=== PATIENT | female | born 2000 | race Caucasian/White ===

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

== ENCOUNTER 2021-03-05 17:07 | Emergency (ER) | payer OTHER ==
[2021-03-05 18:02] VITALS: BP 131/94; PULSE 78; RESP 18; TEMP 98.4
[2021-03-05] MEDS ORDERED: ACETAMINOPHEN TAB 325 MG TAB PO STA (19:54)
--- NOTE | 2021-03-05 20:34 | USB ---
EXAMINATION TYPE: US breast limited LT DATE OF EXAM: 03/05/2021 COMPARISON: NONE CLINICAL HISTORY: mass. Left palpable area 2:00 B At 2:00 A, there is a cystic area visualized measuring 7 x 3 x 8 mm. At the patient's palpable, 2:00 B, there is a hypoechoic solid appearing aread visualized with vascularity measuring 6 x 8 x 11 mm, p ossible fibroadenoma vs other IMPRESSION: In the 2:00 position there is partly septated cyst measuring 7 x 3 mm. There is 8 x 6 x 1 1 mm solid hypoechoic nodule in the 2:00 position zone see that was the area of concern. This is slig htly lobulated. Follow-up is recommended to show long-term stability of the hypoechoic nodule. Repeat ultrasound [place] mm[place] in 6 months. BI-RADS Category 3 probably benign.
--- NOTE | 2021-03-05 20:58 | ED ---
General Adult HPI - General Chief complaint: Skin/Abscess/Foreign Body Stated complaint: Lump on Lt Breast Source: patient Mode of arrival: ambulatory - History of Present Illness Initial comments: Patient is a 20-year-old female with no past medical history presents emergency room with reported left breast pain. She reports that she felt a mass in her left breast last night. Reports it is tender to the touch. Denies fevers, chills or overlying redness. No family history of breast cancer. Denies any nipple drainage. No concern for . Reports that her menstrual cycle will be starting next week. She has not taken anything for pain control. She denies any additional symptoms to include nausea, vomiting, chest pain, shortness of breath, abdominal pain. No alleviating, precipitating or modifying factors - Related Data Home Medications Medication Instructions Recorded Confirmed Cephalexin 250 mg PO TID 09/14/15 09/14/15 Ondansetron Odt [Zofran ODT] 4 mg PO Q8HR 09/14/15 09/14/15 Previous Rx's Medication Instructions Recorded Dicyclomine [Bentyl] 10 mg PO QID PRN #20 capsule 09/14/15 Allergies Allergy/AdvReac Type Severity Reaction Status Date / Time Penicillins Allergy Rapid Verified 03/05/21 18:02 Heart Rate Review of Systems ROS Statement: Those systems with pertinent positive or pertinent negative responses have been documented in the HPI. ROS Other: All systems not noted in ROS Statement are negative. Past Medical History Past Medical History: No Reported History History of Any Multi-Drug Resistant Organisms: None Reported Past Surgical History: Adenoidectomy, Ear Surgery, Tonsillectomy Past Psychological History: No Psychological Hx Reported Smoking Status: Never smoker Past Alcohol Use History: None Reported Past Drug Use History: None Reported Course Vital Signs 03/05/21 17:58 Temperature 98.4 F Pulse Rate 78 Respiratory 18 Rate Blood Pressure 131/94 O2 Sat by Pulse 100 Oximetry Medical Decision Making - Medical Decision Making The patient is placed into room 33. A thorough history and physical exam was performed. Patient is given Tylenol for pain control. Ultrasound of the left breast is performed which demonstrates a cystic area measuring 7 x 3 x 8 mm and additional hypoechoic solid-appearing area measuring 6 x 8 x 11 which is concerning for fibroadenoma. Birads Category 3. Results are discussed with the patient. Instructed to follow-up with her primary care physician. Alternatively taking Motrin, for pain control. Have repeat ultrasound done in 3-6 months. Return to the emergency room for any new or worsening symptoms per patient was discharged home in stable condition Disposition Clinical Impression: Breast mass Disposition: HOME SELF-CARE Condition: Stable Instructions (If sedation given, give patient instructions): Breast Mass (ED) Additional Instructions: Please follow up with your PCP in 2-4 days. You should have a repeat ultrasound in 3-4 months. Return to the ED for any new or worsening symptoms. Is patient prescribed a controlled substance at d/c from ED?: No Referrals: Farhat Swift MD [Primary Care Provider] - 1-2 days Time of Disposition: 20:58
== END 2021-03-05 21:34 | disposition home or self-care (01) ==
LOC: EC 17:07
DX: N63.20 Unspecified lump in the left breast, unspecified quadrant (principal); Z88.0 Allergy status to penicillin; Z90.89 Acquired absence of other organs
CPT/HCPCS: 99283

== ENCOUNTER → 2021-08-31 | Outpatient (CLI) | payer OTHER ==
--- NOTE | 2021-08-31 18:00 | XR ---
EXAMINATION TYPE: XR thoracic spine 2V, XR lumbar spine 2 or 3V DATE OF EXAM: 08/31/2021 COMPARISON: NONE HISTORY: 20 years Female. STUDY INDICATION GIVEN: Pain in Mid/Lower Back M54.50 . TECHNIQUE: Frontal lateral radiographs of the thoracic spine. Frontal and lateral radiographs of the lumbar spine, 3 views. IMPRESSION: No acute fracture or dislocation. Vertebral body heights are normal. Posterior elements are acutely i ntact. Nonrib-bearing lumbar-type vertebral bodies. Included ribs are acutely intact. The heart is not enlar ged. The mediastinum is normal in contour. The included lungs are clear. Straightening of the lumbar curvature noted to be mild. Facet joint arthropathy seen at L3-4 L4-5 and L5-S1. Stable mild neural foraminal narrowing at L5-S1. Please note that radiographs are limited renetta luation for degenerative changes, if clinical concern persists, obtain MRI of the lumbar spine as cli nically indicated.
== END | disposition home or self-care (01) ==
LOC: RADXRMAIN 16:55
PROVIDERS: ATTEND Internal Medicine
DX: M47.817 Spondylosis without myelopathy or radiculopathy, lumbosacral region (principal); M43.8X6 Other specified deforming dorsopathies, lumbar region
CPT/HCPCS: 72070; 72100

== ENCOUNTER → 2021-09-24 | Outpatient (CLI) | payer OTHER ==
--- NOTE | 2021-09-26 12:33 | USB ---
Reason for exam: follow-up at short interval from prior study. Physical Findings: A clinical breast exam by your physician is recommended on an annual basis and results should be correlated with mammographic findings. US Breast BILAT Right complete breast ultrasound includes all four quadrants, the retroareolar region and axilla. Finding demonstrates a 2.0 x 2.0 x 0.6cm oval, solid, hypoechoic, circumscribed lesion at 11 o'clock, probable fibroadenoma. 6 month follow up recommended. Left complete breast ultrasound includes all four quadrants, the retroareolar region and axilla. Finding demonstrates a 0.6 x 0.5 x 0.3cm oval, cystic lesion at 2 o'clock, a 1.1 x 1.4 x 1.3cm heterogeneous tissue, small cystic components at 2 o'clock versus 1.1 x 0.8 x 0.6cm previously, 6 month follow up recommended and a 0.5 x 0.5 x 0.2cm oval, cystic lesion at 1 o'clock. Likely painful fibrocystic change, painful palpable. ASSESSMENT: Probably benign, BI-RAD 3 RECOMMENDATION: Ultrasound of both breasts in 6 months. (right breast 11 o'clock, left breast 2 o'clock) Manage on a clinical basis with regard to palpable painful area 2 o'clock left breast, suspect painful fibrocystic change.
== END | disposition home or self-care (01) ==
LOC: RADUSWWP 14:53
PROVIDERS: ATTEND Internal Medicine
DX: N63.0 Unspecified lump in unspecified breast (principal); Z88.0 Allergy status to penicillin

== ENCOUNTER 2021-10-23 13:34 | Emergency (ER) | payer OTHER ==
[2021-10-23 13:53] VITALS: BP 160/88; PULSE 102; RESP 18; TEMP 98.6
--- NOTE | 2021-10-23 15:16 | US ---
EXAMINATION TYPE: US abdomen APPY DATE OF EXAM: 10/23/2021 COMPARISON: NONE CLINICAL HISTORY: RLQ pain. RLQ pain APPENDIX AP Diameter Not visualized. Is the appendix seen in its entirety from the proximal cecum to distal end: no The appendix is not clearly identified and clinical management of any suspected appendicitis will be required. IMPRESSION: 1. No suspicious changes to suggest acute appendicitis. 2. Clinical management of any suspected appendicitis will be required.
--- NOTE | 2021-10-23 15:21 | ED ---
Abdominal Pain HPI - General Chief Complaint: Abdominal Pain Stated Complaint: abd pain Time Seen by Provider: 10/23/21 13:56 Source: patient, family, RN notes reviewed Mode of arrival: ambulatory - History of Present Illness Initial Comments: This is a 21-year-old female who presents to the emergency department for right lower quadrant pain. States that after a bowel movement, she developed sharp right lower quadrant pain. Also states she has sharp shooting pains in her rectum. She has had similar pains in the past, and states that this is not the worse it has ever been. She has not done anything for the pain at this time. Denies any fevers, chills, nausea, vomiting. She does note that most of her life she has had a problem with chronic constipation and she is not doing anything to treat it. Patient is somewhat difficult to get a history from, she seems to have some sort of cognitive impairment. MD Complaint: abdominal pain Location: RLQ Quality: stabbing, sharp Consistency: intermittent Associated Symptoms: denies other symptoms - Related Data Home Medications Medication Instructions Recorded Confirmed No Known Home Medications 10/23/21 10/23/21 Allergies Allergy/AdvReac Type Severity Reaction Status Date / Time Penicillins Allergy Rapid Verified 10/23/21 15:47 Heart Rate Review of Systems ROS Statement: Those systems with pertinent positive or pertinent negative responses have been documented in the HPI. ROS Other: All systems not noted in ROS Statement are negative. Constitutional: Denies: fever, chills ENT: Denies: ear pain, throat pain Respiratory: Denies: cough, dyspnea Cardiovascular: Denies: chest pain, palpitations Gastrointestinal: Reports: abdominal pain. Denies: nausea, vomiting, diarrhea Genitourinary: Denies: urgency, dysuria Musculoskeletal: Denies: back pain Skin: Denies: rash Neurological: Denies: headache Past Medical History Past Medical History: No Reported History History of Any Multi-Drug Resistant Organisms: None Reported Past Surgical History: Adenoidectomy, Ear Surgery, Tonsillectomy Past Psychological History: No Psychological Hx Reported Smoking Status: Never smoker Past Alcohol Use History: None Reported Past Drug Use History: None Reported General Exam General appearance: alert, in no apparent distress Head exam: Present: atraumatic, normocephalic, normal inspection Respiratory exam: Present: normal lung sounds bilaterally. Absent: respiratory distress, wheezes, rales, rhonchi, stridor Cardiovascular Exam: Present: regular rate, normal rhythm, normal heart sounds. Absent: systolic murmur, diastolic murmur, rubs, gallop, clicks GI/Abdominal exam: Present: soft, tenderness (RLQ), guarding (minimal), normal bowel sounds. Absent: distended, rebound, rigid Expanded GI/Abdominal exam: Present: tenderness at [place]'s Point. Absent: psoas sign, obturator sign, Gómez's sign, Rovsing's sign Neurological exam: Present: alert, oriented X3, CN II-XII intact Psychiatric exam: Present: normal affect, normal mood Skin exam: Present: warm, dry, intact, normal color. Absent: rash Course Vital Signs 10/23/21 13:46 Temperature 98.6 F Pulse Rate 102 H Respiratory 18 Rate Blood Pressure 160/88 O2 Sat by Pulse 100 Oximetry Medical Decision Making - Medical Decision Making This is a 21-year-old female who presents to the emergency department for right lower quadrant pain. Patient was exquisitely tender on physical exam. I advised that we start with an ultrasound, to limit radiation exposure, which can put her ovaries at risk and cause problems with fertility in the future. We discussed the possibility of doing lab work, however the patient declined and states that she really does not like needles. Ultrasound of the right lower quadrant could not fully visualize the appendix and ultrasound of the pelvis was unremarkable. Patient went to provide a urine sample, and states that after she urinated, but the pain went away. Given that this is a recurrent issue for the patient, I do not think she has an acute process going on that requires further workup. She is agreeable to avoiding any blood work or further imaging at this time, given that her symptoms resolved. It is likely that a large component of this is due to constipation. I instructed her to eat plenty of fiber and drink plenty of water and try [id number] probiotics and MiraLAX. She is also advised to discuss this issue with her primary care provider in the event further workup is needed. Return precautions reviewed in depth, the patient is instructed to return to the emergency department with any new, worsening, or concerning symptoms. Patient verbalized understanding. This case was discussed in detail with the attending ED physician. Presentation, findings, and treatment plan discussed in detail as well. - Lab Data Lab Results 10/23/21 10/23/21 Range/Units 15:41 15:41 Urine Color Light Yellow Urine Appearance Clear (Clear) Urine pH 6.0 (5.0-8.0) Ur Specific [place] 1.008 (1.001-1.035) Urine Protein Negative (Negative) Urine Glucose (UA) Negative (Negative) Urine Ketones Negative (Negative) Urine Blood Negative (Negative) Urine Nitrite Negative (Negative) Urine Bilirubin Negative (Negative) Urine Urobilinogen <2.0 (<2.0) mg/dL Ur Leukocyte Esterase Negative (Negative) Urine HCG, Qual Not Detected (Not Detectd) - Radiology Data Radiology results: report reviewed, image reviewed Disposition Clinical Impression: RLQ abdominal pain, Constipation Disposition: HOME SELF-CARE Instructions (If sedation given, give patient instructions): Abdominal Pain (ED) Additional Instructions: Return to the emergency department with any new, worsening, or concerning symptoms. Eat more fiber and drink more water. Try over the counter MiraLAX and probiotics for symptomatic management. Follow-up with your primary care provider in 1 to 2 days. Is patient prescribed a controlled substance at d/c from ED?: No Referrals: Farhat Swift MD [Primary Care Provider] - 1-2 days
--- NOTE | 2021-10-23 15:50 | US ---
EXAMINATION TYPE: US pelvic complete DATE OF EXAM: 10/23/2021 COMPARISON: NONE CLINICAL HISTORY: RLQ pain. TECHNIQUE: Transabdominal (TA). Transabdominal sonographic images of the pelvis were acquired. Tra nsvaginal not attempted, patient has never been sexually active Date of LMP: 10-10-21 EXAM MEASUREMENTS: Uterus: 6.4 x 2.8 x 4.1 cm Endometrial Stripe: 0.6 cm Right Ovary: 3.1 x 2.2 s 2.4 cm Left Ovary: obscured by overlying bowel gas 1. Uterus: Anteverted wnl 2. Endometrium: wnl 3. Right Ovary: wnl 4. Left Ovary: obscured by overlying bowel gas Spectral, color and waveform doppler imaging shows good arterial and venous flow within the right o vary; there is no evidence for ovarian torsion on right 5. Bilateral Adnexa: wnl 6. Posterior cul-de-sac: wnl IMPRESSION: 1. Nonvisualization of the left ovary. Otherwise, no definite acute process.
[2021-10-23 16:02] LABS: Appearance,Urine Clear (Clear); Bilirubin,Urine Negative (Negative); Blood,Urine Negative (Negative); Color,Urine Light Yellow; Glucose,Urine (UA) Negative (Negative); Ketones,Urine Negative (Negative); Leukocyte Esterase,Urine Negative (Negative); Nitrite,Urine Negative (Negative); Protein,Urine Negative (Negative); Specific Gravity,Urine 1.008 (1.001-1.035); Urobilinogen,Urine <2.0 mg/dL (<2.0)
== END 2021-10-23 16:16 | disposition home or self-care (01) ==
LOC: EC 13:34
DX: K59.00 Constipation, unspecified (principal); R10.31 Right lower quadrant pain; Z88.0 Allergy status to penicillin
CPT/HCPCS: 76705; 76856; 81003; 81025; 93976; 99285

== ENCOUNTER 2021-12-25 13:26 | Emergency (ER) | payer OTHER ==
[2021-12-25 13:44] VITALS: BP 121/78; PULSE 98; RESP 18; TEMP 98.8
--- NOTE | 2021-12-25 15:18 | USB ---
Technique: Method: Targeted. Findings: Right complete breast ultrasound includes all four quadrants, the retroareolar region and axilla. Finding demonstrates a 2.0 x 2.0 x 0.6cm oval, solid, hypoechoic, circumscribed lesion at 11 o'clock, probable fibroadenoma. Left complete breast ultrasound includes all four quadrants, the retroareolar region and axilla. No solid or cystic mass is identified. Overall Assessment: Suspicious, BI-RAD 4 Management: Ultrasound Core Biopsy of the right breast. A clinical breast exam by your physician is recommended on an annual basis and results should be correlated with mammographic findings. Electronically signed and approved by: Shaheed Wood M.D. Radiologis
[2021-12-25 15:28] LABS: HCT 39.5 % (34.0-46.0); HGB 13.5 gm/dL (11.4-16.0); MCH 29.4 pg (25.0-35.0); MCHC 34.1 g/dL (31.0-37.0); MCV 86.3 fL (80.0-100.0); Mean Platelet Volume 7.8; Platelet Count 246 k/uL (150-450); RBC 4.57 m/uL (3.80-5.40); WBC 5.8 k/uL (4.0-11.0)
--- NOTE | 2021-12-25 17:00 | ED ---
General Adult HPI - General Chief complaint: Skin/Abscess/Foreign Body Stated complaint: lump on breast Time Seen by Provider: 12/25/21 13:48 Source: patient Mode of arrival: ambulatory Limitations: no limitations - History of Present Illness Initial comments: Patient is 21-year-old female who presents with her father with complaints of increased breast pain most significantly to her left outer breast but it also in addition to her right upper outer breast. She reports that she is breast cyst that had been ultrasounded in the past but her pain has been increasing recently and she is concerned that the cyst may be getting larger. She she denies any wounds, redness, swelling or fevers. Her last menstrual cycle was approximately 3 weeks ago. She has no other significant past medical history. - Related Data Home Medications Medication Instructions Recorded Confirmed No Known Home Medications 10/23/21 10/23/21 Allergies Allergy/AdvReac Type Severity Reaction Status Date / Time Penicillins Allergy Rapid Verified 12/25/21 13:44 Heart Rate Review of Systems ROS Statement: Those systems with pertinent positive or pertinent negative responses have been documented in the HPI. ROS Other: All systems not noted in ROS Statement are negative. Past Medical History Past Medical History: No Reported History History of Any Multi-Drug Resistant Organisms: None Reported Past Surgical History: Adenoidectomy, Ear Surgery, Tonsillectomy Past Psychological History: No Psychological Hx Reported Smoking Status: Never smoker Past Alcohol Use History: None Reported Past Drug Use History: None Reported General Exam Limitations: no limitations General appearance: alert, in no apparent distress Head exam: Present: atraumatic, normocephalic, normal inspection Eye exam: Present: normal appearance, PERRL, EOMI. Absent: scleral icterus, conjunctival injection, periorbital swelling ENT exam: Present: normal exam, mucous membranes moist Neck exam: Present: normal inspection. Absent: tenderness, meningismus, lymphadenopathy Neurological exam: Present: alert, oriented X3, CN II-XII intact Psychiatric exam: Present: normal affect, normal mood Skin exam: Present: warm, dry, intact, normal color, other (Cystic masslike lesion noted at approximately 11:00 left breast with associated tenderness. No nipple retraction or skin dimpling noted. No nipple drainage.). Absent: rash Course Vital Signs 12/25/21 13:42 Temperature 98.8 F Pulse Rate 98 Respiratory 18 Rate Blood Pressure 121/78 O2 Sat by Pulse 100 Oximetry - Reevaluation(s) Reevaluation #1: Ultrasound of breasts showed no abnormalities to the right breast. Left breast with fibroadenoma-like lesion noted at palpated clinical abnormality. Recommend outpatient fine-needle aspiration along with follow-up with mammogram imaging. No further workup indicated inpatient. CBC without evidence of infection. Time: 17:03 Medical Decision Making - Medical Decision Making Check ultrasound of the breast along with CBC to evaluate for infection. No rash or fevers noted at this time. Denies need for analgesic medication at this time. 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 Disposition Clinical Impression: Breast mass in female Disposition: HOME SELF-CARE Condition: Stable Instructions (If sedation given, give patient instructions): Breast Mass (ED) Additional Instructions: Encouraged avoidance of caffeine reduction. Avoid massaging breast mass lesion. Utilize ibuprofen [id number] as needed for pain. Please follow-up with your primary care provider and/or women's wellness in regards to follow-up ultrasound core biopsy of right breast in clinically correlated breast exams. Please return to the Emergency Department if symptoms worsen or any other con cerns. Is patient prescribed a controlled substance at d/c from ED?: No Referrals: Farhat Swift MD [Primary Care Provider] - 1-2 days Trinidad Bal MD [STAFF PHYSICIAN] - 1-2 days Time of Disposition: 17:09
== END 2021-12-25 17:13 | disposition home or self-care (01) ==
LOC: EC 13:26
DX: N63.0 Unspecified lump in unspecified breast (principal); Z88.0 Allergy status to penicillin
CPT/HCPCS: 36415; 85027; 99284

== ENCOUNTER 2022-11-10 04:24 | Emergency (ER) | payer OTHER ==
[2022-11-10 04:28] VITALS: TEMP 96.6
[2022-11-10] MEDS ORDERED: SODIUM CHLORIDE 0.9% 1,000 ML IV STA (05:05)
[2022-11-10] MEDS ORDERED: ONDANSETRON 4 MG/2 ML VIAL IVP STA (05:05)
--- NOTE | 2022-11-10 05:25 | ED ---
Nausea/Vomiting/Diarrhea HPI - General Chief complaint: Nausea/Vomiting/Diarrhea Stated complaint: Abdominal Pain, vomiting Time Seen by Provider: 11/10/22 05:05 Source: patient Mode of arrival: ambulatory Limitations: no limitations - History of Present Illness MD complaint: nausea, vomiting, abdominal pain -: hour(s) Description of Vomiting: food contents Associated Abdominal Pain: Yes Location: periumbilical Radiation: none Severity: moderate Quality: cramping Consistency: constant Improves with: none Worsens with: none Associated Symptoms: nausea/vomiting - Related Data Home Medications Medication Instructions Recorded Confirmed No Known Home Medications 10/23/21 10/23/21 Allergies Allergy/AdvReac Type Severity Reaction Status Date / Time Penicillins Allergy Rapid Verified 12/25/21 13:44 Heart Rate Review of Systems ROS Statement: Those systems with pertinent positive or pertinent negative responses have been documented in the HPI. ROS Other: All systems not noted in ROS Statement are negative. Constitutional: Denies: fever, chills Respiratory: Denies: cough, dyspnea Cardiovascular: Denies: chest pain, palpitations Gastrointestinal: Reports: abdominal pain, nausea, vomiting. Denies: diarrhea, constipation, hematemesis, melena, hematochezia Genitourinary: Denies: dysuria, hematuria Musculoskeletal: Denies: back pain Skin: Denies: rash Neurological: Denies: headache, weakness, numbness Past Medical History Past Medical History: No Reported History History of Any Multi-Drug Resistant Organisms: None Reported Past Surgical History: Adenoidectomy, Ear Surgery, Tonsillectomy Past Psychological History: No Psychological Hx Reported Smoking Status: Never smoker Past Alcohol Use History: None Reported Past Drug Use History: None Reported General Exam Limitations: no limitations General appearance: alert, in no apparent distress Head exam: Present: atraumatic, normocephalic Eye exam: Present: normal appearance. Absent: scleral icterus, conjunctival injection Neck exam: Present: normal inspection Respiratory exam: Present: normal lung sounds bilaterally. Absent: respiratory distress, wheezes, rales, rhonchi, stridor Cardiovascular Exam: Present: regular rate, normal rhythm, normal heart sounds. Absent: systolic murmur, diastolic murmur, rubs, gallop GI/Abdominal exam: Present: soft, tenderness. Absent: distended, guarding, rebound, rigid, mass Extremities exam: Present: normal inspection, normal capillary refill. Absent: pedal edema, calf tenderness Back exam: Present: normal inspection. Absent: CVA tenderness (R), CVA tenderness (L) Neurological exam: Present: alert Skin exam: Present: warm, dry, intact, normal color. Absent: rash Course Vital Signs 11/10/22 11/10/22 04:25 07:23 Temperature 96.6 F L Pulse Rate 96 87 Respiratory 14 18 Rate Blood Pressure 135/98 124/87 O2 Sat by Pulse 99 99 Oximetry Medical Decision Making - Medical Decision Making This patient is 22-year-old woman presenting with signs and symptoms of gastroenteritis. Her history and physical exam all supportive of this diagnosis. No concerning abdominal findings. The patient's workup also consistent with this clinical picture. The patient was feeling better following her stay in emergency department, and stable for discharge. We discussed appropriate further care and follow-up as well as return parameters. Was pt. sent in by a medical professional or institution (, PA, METAL PATTERN MAKER, urgent care, hospital, or jail...) When possible be specific @ -[No] Did you speak to anyone other than the patient for history (EMS, parent, family, police, friend...)? What history was obtained from this source @ -[No] Did you review nursing and triage notes (agree or disagree)? Why? @ -[I reviewed and agree with nursing and triage notes] Were old charts reviewed (outside hosp., previous admission, EMS record, old EKG, old radiological studies, urgent care reports/EKG's, jail records)? Report findings @ -[No old charts were reviewed] Differential Diagnosis (chest pain, altered mental status, abdominal pain women, abdominal pain men, vaginal bleeding, weakness, fever, dyspnea, syncope, headach e, dizziness, GI bleed, back pain, seizure, CVA, palpatations, mental health, musculoskeletal)? @ -[Differential Abdominal Pain Women: Appendicitis, Cholecystitis, diverticulosis, ischemic bowel, pancreatitis, hepatitis, UTI, gastroenteritis, AAA, incarcerated hernia, bowel obstruction, constipation, inflammatory bowel, hepatitis, peptic ulcer disease, splenic infarction, perforated viscus, vulvitis, ovarian torsion, PID, kidney stone, placenta abruption, this is not meant to be an all-inclusive list EKG interpreted by me (3pts min.). @ -[A X-rays interpreted by me (1pt min.). @ -[None done] CT interpreted by me (1pt min.). @ -[None done] U/S interpreted by me (1pt. min.). @ -[None done] What testing was considered but not performed or refused? (CT, X-rays, U/S, labs)? Why? @ -[None] What meds were considered but not given or refused? Why? @ -[None] Did you discuss the management of the patient with other professionals (professionals i.e. , PA, METAL PATTERN MAKER, lab, RT, psych nurse, social service agency director, credit control manager, teacher, civil preparedness officer, pillowcase cleaner)? Give summary @ -[No] Was smoking cessation discussed for >3mins.? @ -[No] Was critical care preformed (if so, how long)? @ -[No] Were there social determinants of health that impacted care today? How? (Homelessness, low income, unemployed, alcoholism, drug addiction, transportation, low edu. Level, literacy, decrease access to med. care, retirement, rehab)? @ -[No] Was there de-escalation of care discussed even if they declined (Discuss DNR or withdrawal of care, Hospice)? DNR status @ -[No] What co-morbidities impacted this encounter? (DM, HTN, Smoking, COPD, CAD, Cancer, CVA, ARF, Chemo, Hep., AIDS, mental health diagnosis, sleep apnea, morbid obesity)? @ -[None] Was patient admitted / discharged? Hospital course, mention meds given and route, prescriptions, significant lab abnormalities, going to OR and other pertinent info. @ -[Discharged, as above Undiagnosed new problem with uncertain prognosis? @ -[No] Drug Therapy requiring intensive monitoring for toxicity (Heparin, Nitro, Insulin, Cardizem)? @ -[No] Were any procedures done? @ -[No] Diagnosis/symptom? @ -[Acute gastroenteritis, uncomplicated Acute, or Chronic, or Acute on Chronic? @ -[default] Uncomplicated (without systemic symptoms) or Complicated (systemic symptoms)? @ -[default] Side effects of treatment? @ -[No] Exacerbation, Progression, or Severe Exacerbation? @ -[No] Poses a threat to life or bodily function? How? (Chest pain, [place], [place], pneumonia, PE, COPD, DKA, ARF, appy, cholecystitis, CVA, Diverticulitis, Homicidal, Suicidal, threat to staff... and all critical care pts) @ -[No] - Lab Data Result diagrams: 11/10/22 05:05 11/10/22 05:05 Lab Results 11/10/22 11/10/22 11/10/22 Range/Units 05:05 05:05 06:28 WBC 8.9 (3.8-10.6) k/uL RBC 4.63 (3.80-5.40) m/uL Hgb 13.2 (11.4-16.0) gm/dL Hct 38.5 (34.0-46.0) % MCV 83.1 (80.0-100.0) fL MCH 28.4 (25.0-35.0) pg MCHC 34.2 (31.0-37.0) g/dL RDW 12.4 (11.5-15.5) % Plt Count 280 (150-450) k/uL MPV 8.1 Neutrophils % 80 % Lymphocytes % 12 % Monocytes % 4 % Eosinophils % 1 % Basophils % 0 % Neutrophils # 7.1 (1.3-7.7) k/uL Lymphocytes # 1.1 (1.0-4.8) k/uL Monocytes # 0.4 (0-1.0) k/uL Eosinophils # 0.1 (0-0.7) k/uL Basophils # 0.0 (0-0.2) k/uL Sodium 140 (137-145) mmol/L Potassium 4.4 (3.5-5.1) mmol/L Chloride 103 (98-107) mmol/L Carbon Dioxide 25 (22-30) mmol/L Anion Gap 12 mmol/L BUN 14 (7-17) mg/dL Creatinine 0.53 (0.52-1.04) mg/dL Est GFR (CKD-EPI)AfAm >90 (>60 ml/min/1.73 sqM) Est GFR (CKD-EPI)NonAf >90 (>60 ml/min/1.73 sqM) Glucose 104 H (74-99) mg/dL Calcium 10.0 (8.4-10.2) mg/dL Total Bilirubin 0.5 (0.2-1.3) mg/dL AST 22 (14-36) U/L ALT 15 (4-34) U/L Alkaline Phosphatase 79 (38-126) U/L C-Reactive Protein <0.5 (<1.0) mg/dL Total Protein 8.3 H (6.3-8.2) g/dL Albumin 5.1 H (3.5-5.0) g/dL Amylase 47 (30-110) U/L Lipase 69 (23-300) U/L Urine Color Yellow Urine Appearance Clear (Clear) Urine pH 7.0 (5.0-8.0) Ur Specific [place] 1.029 (1.001-1.035) Urine Protein Trace H (Negative) Urine Glucose (UA) Negative (Negative) Urine Ketones 1+ H (Negative) Urine Blood Trace H (Negative) Urine Nitrite Negative (Negative) Urine Bilirubin Negative (Negative) Urine Urobilinogen <2.0 (<2.0) mg/dL Ur Leukocyte Esterase Trace H (Negative) Urine RBC 1 (0-5) /hpf Urine WBC 1 (0-5) /hpf Ur Squamous Epith Cells 7 H (0-4) /hpf Urine Bacteria Rare H (None) /hpf Urine Mucus Rare H (None) /hpf Urine HCG, Qual (Not Detectd) 11/10/22 Range/Units 06:28 WBC (3.8-10.6) k/uL RBC (3.80-5.40) m/uL Hgb (11.4-16.0) gm/dL Hct (34.0-46.0) % MCV (80.0-100.0) fL MCH (25.0-35.0) pg MCHC (31.0-37.0) g/dL RDW (11.5-15.5) % Plt Count (150-450) k/uL MPV Neutrophils % % Lymphocytes % % Monocytes % % Eosinophils % % Basophils % % Neutrophils # (1.3-7.7) k/uL Lymphocytes # (1.0-4.8) k/uL Monocytes # (0-1.0) k/uL Eosinophils # (0-0.7) k/uL Basophils # (0-0.2) k/uL Sodium (137-145) mmol/L Potassium (3.5-5.1) mmol/L Chloride (98-107) mmol/L Carbon Dioxide (22-30) mmol/L Anion Gap mmol/L BUN (7-17) mg/dL Creatinine (0.52-1.04) mg/dL Est GFR (CKD-EPI)AfAm (>60 ml/min/1.73 sqM) Est GFR (CKD-EPI)NonAf (>60 ml/min/1.73 sqM) Glucose (74-99) mg/dL Calcium (8.4-10.2) mg/dL Total Bilirubin (0.2-1.3) mg/dL AST (14-36) U/L ALT (4-34) U/L Alkaline Phosphatase (38-126) U/L C-Reactive Protein (<1.0) mg/dL Total Protein (6.3-8.2) g/dL Albumin (3.5-5.0) g/dL Amylase (30-110) U/L Lipase (23-300) U/L Urine Color Urine Appearance (Clear) Urine pH (5.0-8.0) Ur Specific [place] (1.001-1.035) Urine Protein (Negative) Urine Glucose (UA) (Negative) Urine Ketones (Negative) Urine Blood (Negative) Urine Nitrite (Negative) Urine Bilirubin (Negative) Urine Urobilinogen (<2.0) mg/dL Ur Leukocyte Esterase (Negative) Urine RBC (0-5) /hpf Urine WBC (0-5) /hpf Ur Squamous Epith Cells (0-4) /hpf Urine Bacteria (None) /hpf Urine Mucus (None) /hpf Urine HCG, Qual Not Detected (Not Detectd) Disposition Clinical Impression: Gastroenteritis Disposition: HOME SELF-CARE Condition: Good Instructions (If sedation given, give patient instructions): Gastroenteritis (ED) Is patient prescribed a controlled substance at d/c from ED?: No Referrals: Farhat Swift MD [Primary Care Provider] - 1-2 days
[2022-11-10 05:57] LABS: Basophils % (A) 0 %; Eosinophils # (A) 0.1 k/uL (0-0.7); Eosinophils % (A) 1 %; HCT 38.5 % (34.0-46.0); HGB 13.2 gm/dL (11.4-16.0); Lymphocytes # (A) 1.1 k/uL (1.0-4.8); Lymphocytes % (A) 12 %; MCH 28.4 pg (25.0-35.0); MCHC 34.2 g/dL (31.0-37.0); MCV 83.1 fL (80.0-100.0); Mean Platelet Volume 8.1; Monocytes # (A) 0.4 k/uL (0-1.0); Monocytes % (A) 4 %; Neutrophils # (A) 7.1 k/uL (1.3-7.7); Neutrophils % (A) 80 %; Platelet Count 280 k/uL (150-450); RBC 4.63 m/uL (3.80-5.40); RDW 12.4 % (11.5-15.5); WBC 8.9 k/uL (3.8-10.6)
[2022-11-10 06:07] LABS: ALT 15 U/L (4-34); AST 22 U/L (14-36); African American GFR (CKD) >90 (>60 ml/min/1.73 sqM); Albumin 5.1 g/dL (3.5-5.0); Alkaline Phosphatase 79 U/L (38-126); Amylase 47 U/L (30-110); Anion Gap 12 mmol/L; Blood Urea Nitrogen 14 mg/dL (7-17); C Reactive Protein <0.5 mg/dL (<1.0); Carbon Dioxide 25 mmol/L (22-30); Chloride 103 mmol/L (98-107); Glucose 104 mg/dL (74-99); Lipase 69 U/L (23-300); Non-African American GFR(CKD) >90 (>60 ml/min/1.73 sqM); Potassium 4.4 mmol/L (3.5-5.1); Sodium 140 mmol/L (137-145); Total Bilirubin 0.5 mg/dL (0.2-1.3); Total Protein 8.3 g/dL (6.3-8.2)
[2022-11-10 06:42] LABS: Appearance,Urine Clear (Clear); Bacteria,Urine Rare /hpf; Bilirubin,Urine Negative (Negative); Blood,Urine Trace (Negative); Color,Urine Yellow; Glucose,Urine (UA) Negative (Negative); Ketones,Urine 1+ (Negative); Leukocyte Esterase,Urine Trace (Negative); Mucus,Urine Rare /hpf; Nitrite,Urine Negative (Negative); Protein,Urine Trace (Negative); RBC,Urine 1 /hpf (0-5); Specific Gravity,Urine 1.029 (1.001-1.035); Squamous Epithelial Cell,Urine 7 /hpf (0-4); Urobilinogen,Urine <2.0 mg/dL (<2.0); WBC,Urine 1 /hpf (0-5)
[2022-11-10 07:24] VITALS: BP 124/87; PULSE 87; RESP 18
== END 2022-11-10 07:24 | disposition home or self-care (01) ==
LOC: EC 04:24
DX: K52.9 Noninfective gastroenteritis and colitis, unspecified (principal); Z88.0 Allergy status to penicillin
CPT/HCPCS: 36415; 80053; 82150; 83690; 85025; 86140; 81001; 81025; 99284; 96374; 96361; J2405

== ENCOUNTER 2023-03-12 21:07 | Emergency (ER) | payer OTHER ==
[2023-03-12 21:24] VITALS: PULSE 93; TEMP 98.3
[2023-03-12 23:45] LABS: Amorphous Sediment,Urine Few /hpf; Appearance,Urine Cloudy (Clear); Bilirubin,Urine Negative (Negative); Blood,Urine Negative (Negative); Color,Urine Yellow; Glucose,Urine (UA) Negative (Negative); Hyaline Casts,Urine 19 /lpf (0-2); Ketones,Urine Negative (Negative); Leukocyte Esterase,Urine Small (Negative); Mucus,Urine Moderate /hpf; Nitrite,Urine Negative (Negative); PH, Urine 7.5 (5.0-8.0); Protein,Urine Trace (Negative); Specific Gravity,Urine 1.025 (1.001-1.035); Squamous Epithelial Cell,Urine 18 /hpf (0-4); Urobilinogen,Urine <2.0 mg/dL (<2.0); WBC,Urine 4 /hpf (0-5)
--- NOTE | 2023-03-13 00:08 | ED ---
General Adult HPI - General Chief complaint: Arrhythmia/Palpitations Stated complaint: heart flutter, back pain Time Seen by Provider: 03/12/23 22:26 Source: patient, RN notes reviewed Mode of arrival: ambulatory Limitations: no limitations - History of Present Illness Initial comments: 22-year-old female with no significant past medical history presents the emergency department the chief complaint of acute low back pain. Patient reports worsening left-sided low back pain with sudden onset of today. She denies any injury or trauma. She denies any event that symptoms of fever, chills, saddle paresthesia, loss of bowel or bladder function. She has not taken anything for his symptoms. She reports that she felt her heart fluttering earlier this afternoon however she was reported improvement of her symptoms. - Related Data Previous Rx's Medication Instructions Recorded Ibuprofen [Motrin] 800 mg PO Q8HR PRN #30 tab 03/13/23 Lidocaine 5% Patch [Lidoderm 5% 1 patch TOPICAL DAILY #5 patch 03/13/23 Patch] Allergies Allergy/AdvReac Type Severity Reaction Status Date / Time Penicillins Allergy Rapid Verified 03/12/23 21:24 Heart Rate Review of Systems ROS Statement: Those systems with pertinent positive or pertinent negative responses have been documented in the HPI. ROS Other: All systems not noted in ROS Statement are negative. Past Medical History Past Medical History: No Reported History History of Any Multi-Drug Resistant Organisms: None Reported Past Surgical History: Adenoidectomy, Ear Surgery, Tonsillectomy Past Psychological History: No Psychological Hx Reported Smoking Status: Never smoker Past Alcohol Use History: None Reported Past Drug Use History: None Reported General Exam - General Exam Comments Initial Comments: General: Alert, in no acute distress Head: atraumatic normocephalic. Eyes PERRL, EOMI intact, mucous membranes moist Respiratory: Lungs clear to auscultation bilaterally Cardiovascular: Regular rate regular rate and rhythm Abdominal: Soft without guarding or rebound Extremities: Normal inspection with full range of motion and normal capillary refill Neuroogic: alert and oriented 3, CN II-XII intact, able to ambulate with steady gait Skin: warm dry and intact with normal color Limitations: no limitations Course Vital Signs 03/12/23 03/13/23 21:21 01:00 Temperature 98.3 F Pulse Rate 93 93 Respiratory 20 16 Rate Blood Pressure 152/88 139/90 O2 Sat by Pulse 99 100 Oximetry - Reevaluation(s) Reevaluation #1: 03/13/23 00:05 Notified by primary RN and patient has been poked twice for blood work with unsuccessful attempts. Patient refusing IV blood work at this time. Medical Decision Making - Medical Decision Making Was pt. sent in by a medical professional or institution (, MELY, SECURITY INSPECTOR, urgent care, hospital, or retirement...) When possible be specific @ -[No] Did you speak to anyone other than the patient for history (EMS, parent, family, police, friend...)? What history was obtained from this source @ -[No] Did you review nursing and triage notes (agree or disagree)? Why? @ -[I reviewed and agree with nursing and triage notes] Were old charts reviewed (outside hosp., previous admission, EMS record, old E KG, old radiological studies, urgent care reports/EKG's, retirement records)? Report findings @ -[No old charts were reviewed] Differential Diagnosis (chest pain, altered mental status, abdominal pain women, abdominal pain men, vaginal bleeding, weakness, fever, dyspnea, syncope, headache, dizziness, GI bleed, back pain, seizure, CVA, palpatations, mental h ealth, musculoskeletal)? @ -[not applicable] EKG interpreted by me (3pts min.). @ -[As above] X-rays interpreted by me (1pt min.). @ -Chest x-ray, thoracic x-rays, lumbar, x-rays negative for any evidence of fracture or dislocation or acute pathology. CT interpreted by me (1pt min.). @ -[None done] U/S interpreted by me (1pt. min.). @ -[None done] What testing was considered but not performed or refused? (CT, X-rays, U/S, labs)? Why? @ -Patient complaining of feeling like her heart was fluttering. Laboratory studies were ordered however patient refused when nursing staff attempted to obtain lab work. What meds were considered but not given or refused? Why? @ -[None] Did you discuss the management of the patient with other professionals (professionals i.e. , MELY, SECURITY INSPECTOR, lab, RT, psych nurse, social media sr strategy manager, deputy k 9, teacher, chief science officer, family preservation caseworker)? Give summary @ -[No] Was smoking cessation discussed for >3mins.? @ -[No] Was critical care preformed (if so, how long)? @ -[No] Were there social determinants of health that impacted care today? How? (Homelessness, low income, unemployed, alcoholism, drug addiction, transportation, low edu. Level, literacy, decrease access to med. care, [facility], rehab)? @ -[No] Was there de-escalation of care discussed even if they declined (Discuss DNR or withdrawal of care, Hospice)? DNR status @ -[No] What co-morbidities impacted this encounter? (DM, HTN, Smoking, COPD, CAD, Cancer, CVA, ARF, Chemo, Hep., AIDS, mental health diagnosis, sleep apnea, morbid obesity)? @ -[None] Was patient admitted / discharged? Hospital course, mention meds given and route, prescriptions, significant lab abnormalities, going to OR and other pertinent info. @ -22-year-old female with no significant past medical history presents emergency Department with chief complaint of low back pain. Patient had a thorough history and physical exam performed on the ED. Physical exam is essentially unremarkable. Heart rate regular rate and rhythm, lungs clear auscultation bilaterally, abdomen soft and nontender. Back exam without any kenzie p-off. No paraspinal muscle tenderness. Patient had imaging performed which was negative. Patient was offered laboratory studies however she declined. Urinalysis appears contaminated with small amount of leukocyte esterase. Urine culture pending. I discussed results in detail with the patient verbalized understanding all questions were addressed. She is agreeable with the plan for discharge home at this time a prescription return precautions discussed. Recommend close follow-up with PCP in 1-2 days. She was provided discussion for Motrin 800 and Lidoderm patch. Patient discharged in stable condition. Discussed case with FRANKI Roque who agrees with the care Undiagnosed new problem with uncertain prognosis? @ -[No] Drug Therapy requiring intensive monitoring for toxicity (Heparin, Nitro, Insulin, Cardizem)? @ -[No] Were any procedures done? @ -[No] Diagnosis/symptom? @ -Back Pain - Palpitations Acute, or Chronic, or Acute on Chronic? @ -Acute Uncomplicated (without systemic symptoms) or Complicated (systemic symptoms)? @ -Uncomplicated Side effects of treatment? @ -[No] Exacerbation, Progression, or Severe Exacerbation? @ -[No] Poses a threat to life or bodily function? How? (Chest pain, [place], [place], pneumonia, PE, COPD, DKA, ARF, appy, cholecystitis, CVA, Diverticulitis, Homicidal, Suicidal, threat to staff... and all critical care pts) @ -Low likelihood - Lab Data Lab Results 03/12/23 03/12/23 Range/Units 23:00 23:00 Urine Color Yellow Urine Appearance Cloudy H (Clear) Urine pH 7.5 (5.0-8.0) Ur Specific [place] 1.025 (1.001-1.035) Urine Protein Trace H (Negative) Urine Glucose (UA) Negative (Negative) Urine Ketones Negative (Negative) Urine Blood Negative (Negative) Urine Nitrite Negative (Negative) Urine Bilirubin Negative (Negative) Urine Urobilinogen <2.0 (<2.0) mg/dL Ur Leukocyte Esterase Small H (Negative) Urine WBC 4 (0-5) /hpf Ur Squamous Epith Cells 18 H (0-4) /hpf Amorphous Sediment Few H (None) /hpf Hyaline Casts 19 H (0-2) /lpf Urine Mucus Moderate H (None) /hpf Urine HCG, Qual Not Detected (Not Detectd) Disposition Clinical Impression: Low back pain, Palpitations Disposition: HOME SELF-CARE Condition: Stable Instructions (If sedation given, give patient instructions): Heart Palpitations (ED), Acute Low Back Pain (ED) Prescriptions: Lidocaine 5% Patch [Lidoderm 5% Patch] 1 patch TOPICAL DAILY #5 patch Ibuprofen [Motrin] 800 mg PO Q8HR PRN #30 tab PRN Reason: Pain Is patient prescribed a controlled substance at d/c from ED?: No Referrals: Farhat Swift MD [Primary Care Provider] - 1-2 days Time of Disposition: 00:53
--- NOTE | 2023-03-13 00:24 | XR ---
EXAM: XR Thoracic Spine, 2 Views CLINICAL HISTORY: [email or web address] XR Reason: back pain TECHNIQUE: Frontal and lateral views of the thoracic spine. COMPARISON: No relevant prior studies available. FINDINGS: Vertebrae: Unremarkable. No acute fracture. Normal alignment. Disc spaces: No acute findings. No significant narrowing. Soft tissues: Unremarkable. IMPRESSION: Normal thoracic spine x-rays.
--- NOTE | 2023-03-13 00:26 | XR ---
EXAM: XR Lumbosacral Spine, 2 or 3 Views CLINICAL HISTORY: [email or web address] XR Reason: back pain TECHNIQUE: Frontal and lateral views of the lumbar spine and sacrum. COMPARISON: 08/31/2021 FINDINGS: No fracture or dislocation identified on this exam. Vertebral bodies are normal in height and alignment. Interspaces are preserved. Overall no significant interval change from prior exam. IMPRESSION: No acute osseous pathology Mild degenerative changes of the lumbar spine.
--- NOTE | 2023-03-13 00:40 | XR ---
EXAM: XR Chest, 2 Views CLINICAL HISTORY: [email or web address] XR Reason: palpitations TECHNIQUE: Frontal and lateral views of the chest. COMPARISON: No relevant prior studies available. FINDINGS: Lungs: Unremarkable. No consolidation. Pleural space: Unremarkable. No pneumothorax. Heart: Unremarkable. No cardiomegaly. Mediastinum: Unremarkable. Bones/joints: Unremarkable. IMPRESSION: Normal chest x-rays.
[2023-03-13 01:01] VITALS: BP 139/90; RESP 16
== END 2023-03-13 01:13 | disposition home or self-care (01) ==
LOC: EC 21:07
DX: M54.50 Low back pain, unspecified (principal); R00.2 Palpitations
CPT/HCPCS: 71046; 72070; 72100; 81001; 81025; 93005; 99285

== ENCOUNTER 2023-06-27 19:17 | Emergency (ER) | payer OTHER ==
[2023-06-27 19:59] VITALS: RESP 18
--- NOTE | 2023-06-27 20:04 | ED ---
ENT HPI - General Source: patient Mode of arrival: ambulatory Limitations: no limitations <Marty Burrows - Last Filed: 06/27/23 20:04> - History of Present Illness MD complaint: sore throat Onset/Timin -: week(s) Location: throat Severity: moderate Quality: burning Consistency: constant Improves with: none Worsens with: none <Pardeep Camacho - Last Filed: 07/19/23 06:50> - General Chief complaint: ENT Stated complaint: throat pain sob - History of Present Illness Initial comments: 22-year-old female presenting to the ED with the chief complaint of sore throat. Patient states for the past week has had a sore throat. Reports that she feels as if this is causing her trouble breathing. Denies drooling. (Marty Burrows) - Related Data Previous Rx's Medication Instructions Recorded Ibuprofen [Motrin] 800 mg PO Q8HR PRN #30 tab 03/13/23 Lidocaine 5% Patch [Lidoderm 5% 1 patch TOPICAL DAILY #5 patch 03/13/23 Patch] Allergies Allergy/AdvReac Type Severity Reaction Status Date / Time amoxicillin Allergy Rapid Verified 06/27/23 19:59 Heart Rate Penicillins Allergy Rapid Verified 03/12/23 21:24 Heart Rate Review of Systems ROS Other: All systems not noted in ROS Statement are negative. <Marty Burrows - Last Filed: 06/27/23 20:04> ROS Other: All systems not noted in ROS Statement are negative. Constitutional: Denies: fever, chills ENT: Reports: throat pain, congestion Respiratory: Reports: cough Cardiovascular: Denies: chest pain, palpitations Gastrointestinal: Denies: abdominal pain, vomiting, diarrhea Genitourinary: Denies: dysuria Musculoskeletal: Denies: back pain Skin: Denies: rash <Pardeep Camacho - Last Filed: 07/19/23 06:50> ROS Statement: Those systems with pertinent positive or pertinent negative responses have been documented in the HPI. Past Medical History Past Medical History: No Reported History History of Any Multi-Drug Resistant Organisms: None Reported Past Surgical History: Adenoidectomy, Ear Surgery, Tonsillectomy Past Psychological History: No Psychological Hx Reported Smoking Status: Never smoker Past Alcohol Use History: None Reported Past Drug Use History: None Reported <Marty Burrows - Last Filed: 06/27/23 20:04> General Exam Limitations: no limitations <Marty Burrows - Last Filed: 06/27/23 20:04> General appearance: alert, in no apparent distress Head exam: Present: atraumatic, normocephalic Eye exam: Present: normal appearance. Absent: scleral icterus, conjunctival injection ENT exam: Present: normal oropharynx, mucous membranes moist Neck exam: Present: normal inspection, full ROM, lymphadenopathy. Absent: tenderness, meningismus Respiratory exam: Present: normal lung sounds bilaterally. Absent: respiratory distress, wheezes, rales, rhonchi, stridor, accessory muscle use Cardiovascular Exam: Present: regular rate, normal rhythm, normal heart sounds. Absent: systolic murmur, diastolic murmur, rubs, gallop GI/Abdominal exam: Present: soft. Absent: distended, tenderness, guarding, re bound, rigid, mass Extremities exam: Present: normal inspection, normal capillary refill. Absent: pedal edema, calf tenderness Back exam: Present: normal inspection. Absent: CVA tenderness (R), CVA tenderness (L) Neurological exam: Present: alert Skin exam: Present: warm, dry, intact, normal color. Absent: rash <Pardeep Camacho - Last Filed: 07/19/23 06:50> - General Exam Comments Initial Comments: Visual Physical Exam Vital signs reviewed General: Well-appearing, nontoxic, no acute distress. Head: Normocephalic, atraumatic Eyes: PERRLA, EOMI ENT: Airway patent. No stridor. Chest: Nonlabored breathing Skin: No visual rash, normal skin tone Neuro: Alert and oriented 3 Musculoskeletal: No gross abnormalities (Marty Burrows) Course Vital Signs 06/27/23 06/28/23 19:55 01:37 Temperature 98.7 F 98.8 F Pulse Rate 99 92 Respiratory 18 18 Rate Blood Pressure 121/85 118/78 O2 Sat by Pulse 100 98 Oximetry Medical Decision Making <Marty Burrows - Last Filed: 06/27/23 20:04> <Pardeep Camacho - Last Filed: 07/19/23 06:50> - Medical Decision Making Quicknote portion performed. Signed Marty BOONE-Zehra (Marty Burrows) Was pt. sent in by a medical professional or institution (MELY Sanchez, DIRECTOR OF FINANCIAL PLANNING, urgent care, hospital, or shelter...) When possible be specific @ -[No] Did you speak to anyone other than the patient for history (EMS, parent, family, police, friend...)? What history was obtained from this source @ -[No] Did you review nursing and triage notes (agree or disagree)? Why? @ -[I reviewed and agree with nursing and triage notes] Were old charts reviewed (outside hosp., previous admission, EMS record, old EKG, old radiological studies, urgent care reports/EKG's, shelter records)? Report findings @ -[No old charts were reviewed] Differential Diagnosis (chest pain, altered mental status, abdominal pain women, abdominal pain men, vaginal bleeding, weakness, fever, dyspnea, syncope, headache, dizziness, GI bleed, back pain, seizure, CVA, palpatations, mental health, musculoskeletal)? @ -[not applicable] EKG interpreted by me (3pts min.). @ -[As above] X-rays interpreted by me (1pt min.). @ -[None done] CT interpreted by me (1pt min.). @ -[None done] U/S interpreted by me (1pt. min.). @ -[None done] What testing was considered but not performed or refused? (CT, X-rays, U/S, labs)? Why? @ -[None] What meds were considered but not given or refused? Why? @ -[None] Did you discuss the management of the patient with other professionals (professionals i.e. MELY Sanchez, DIRECTOR OF FINANCIAL PLANNING, lab, RT, psych nurse, psychiatric social worker, charger operator helper, teacher, principal gifts officer, director of casework department)? Give summary @ -[No] Was smoking cessation discussed for >3mins.? @ -[No] Was critical care preformed (if so, how long)? @ -[No] Were there social determinants of health that impacted care today? How? (Homelessness, low income, unemployed, alcoholism, drug addiction, transportation, low edu. Level, literacy, decrease access to med. care, fdc, rehab)? @ -[No] Was there de-escalation of care discussed even if they declined (Discuss DNR or withdrawal of care, Hospice)? DNR status @ -[No] What co-morbidities impacted this encounter? (DM, HTN, Smoking, COPD, CAD, Cancer, CVA, ARF, Chemo, Hep., AIDS, mental health diagnosis, sleep apnea, morbid obesity)? @ -[None] Was patient admitted / discharged? Hospital course, mention meds given and route, prescriptions, significant lab abnormalities, going to OR and other pertinent info. @ -[Patient is 22-year-old woman presenting with symptoms suggestive of viral syndrome. She did test positive for COVID-19 infection. Discussed appropriate further care and follow-up as well as return parameters. Undiagnosed new problem with uncertain prognosis? @ -[No] Drug Therapy requiring intensive monitoring for toxicity (Heparin, Nitro, Insulin, Cardizem)? @ -[No] Were any procedures done? @ -[No] Diagnosis/symptom? @ -[Acute COVID-19 infection Acute, or Chronic, or Acute on Chronic? @ -[Acute Uncomplicated (without systemic symptoms) or Complicated (systemic symptoms)? @ -[Uncomplicated Side effects of treatment? @ -[No] Exacerbation, Progression, or Severe Exacerbation? @ -[No] Poses a threat to life or bodily function? How? (Chest pain, [place], [place], pneumonia, PE, COPD, DKA, ARF, appy, cholecystitis, CVA, Diverticulitis, Homicidal, Suicidal, threat to staff... and all critical care pts) @ -[No] (Pardeep Camacho) - Lab Data Lab Results 06/27/23 06/27/23 Range/Units 23:44 23:44 Influenza Type A (PCR) Not Detected (Not Detectd) Influenza Type B (PCR) Not Detected (Not Detectd) RSV (PCR) Not Detected (Not Detectd) SARS-CoV-2 (PCR) Detected A (Not Detectd) Group A Strep (PCR) NOT DETECTED (Not Detectd) Disposition <Marty Burrows - Last Filed: 06/27/23 20:04> Is patient prescribed a controlled substance at d/c from ED?: No <Pardeep Camacho - Last Filed: 07/19/23 06:50> Clinical Impression: COVID-19 Disposition: HOME SELF-CARE Condition: Good Instructions (If sedation given, give patient instructions): COVID-19 (Coronavirus Disease 2019) (ED) Referrals: Farhat Swift MD [Primary Care Provider] - 1-2 days
[2023-06-28] MEDS ORDERED: predniSONE 20 MG TAB PO STA (01:30)
[2023-06-28 01:40] VITALS: BP 118/78; PULSE 92; TEMP 98.8
== END 2023-06-28 01:38 | disposition home or self-care (01) ==
LOC: EC 19:17
DX: U07.1 COVID-19 (principal); Z88.0 Allergy status to penicillin
CPT/HCPCS: 99283; 87651; 87636; J7512

== ENCOUNTER 2023-10-17 17:51 | Emergency (ER) | payer OTHER ==
[2023-10-17 18:49] VITALS: BP 116/68; PULSE 68; RESP 16; TEMP 98.7
--- NOTE | 2023-10-17 18:49 | ED ---
General Adult HPI - General Chief complaint: Psychiatric Symptoms Stated complaint: Mental Health Time Seen by Provider: 10/17/23 18:25 Source: patient, family, RN notes reviewed Mode of arrival: ambulatory Limitations: no limitations - History of Present Illness Initial comments: Patient is a 23-year-old female presenting to the emergency department with concerns for depression. Patient lost her mother and brother recently. Patient admits to feeling depressed. Patient does have history of previous suicide attempt however states that was years ago. Patient was at the doctor's office today and did tell the provider that she had suicidal thoughts. Patient states these were thoughts that she had years ago and not current. No homicidal thoughts. No hallucinations. Patient does not sleep well. Patient has been eating well. - Related Data Home Medications Medication Instructions Recorded Confirmed No Known Home Medications 10/17/23 10/17/23 Allergies Allergy/AdvReac Type Severity Reaction Status Date / Time amoxicillin AdvReac Rapid Verified 10/17/23 19:19 Heart Rate Penicillins AdvReac Rapid Verified 10/17/23 19:19 Heart Rate Review of Systems ROS Statement: Those systems with pertinent positive or pertinent negative responses have been documented in the HPI. ROS Other: All systems not noted in ROS Statement are negative. Constitutional: Denies: fever Eyes: Denies: eye pain ENT: Denies: ear pain Respiratory: Denies: cough Cardiovascular: Denies: chest pain Endocrine: Denies: fatigue Gastrointestinal: Denies: abdominal pain Musculoskeletal: Denies: back pain Psychiatric: Reports: as per HPI, depression Past Medical History Past Medical History: No Reported History History of Any Multi-Drug Resistant Organisms: None Reported Past Surgical History: Adenoidectomy, Ear Surgery, Tonsillectomy Past Psychological History: No Psychological Hx Reported Smoking Status: Never smoker Past Alcohol Use History: None Reported Past Drug Use History: None Reported General Exam Limitations: no limitations General appearance: alert, in no apparent distress Head exam: Present: normocephalic Eye exam: Present: normal appearance Neck exam: Present: normal inspection Respiratory exam: Present: normal lung sounds bilaterally Cardiovascular Exam: Present: regular rate, normal rhythm GI/Abdominal exam: Present: soft. Absent: tenderness Extremities exam: Present: normal inspection Psychiatric exam: Present: flat affect Skin exam: Present: normal color Course Vital Signs 10/17/23 10/17/23 18:00 18:41 Temperature 98.7 F Pulse Rate 96 68 Respiratory 18 16 Rate Blood Pressure 119/82 116/68 O2 Sat by Pulse 100 98 Oximetry Medical Decision Making - Medical Decision Making Was pt. sent in by a medical professional or institution (MELY Sanchez, FINISH CARPENTER, urgent care, hospital, or intermediate...) When possible be specific @ -Patient was sent by Dr. Bower's office Did you speak to anyone other than the patient for history (EMS, parent, family, police, friend...)? What history was obtained from this source @ -Family is present who is also present at the office and help provide history Did you review nursing and triage notes (agree or disagree)? Why? @ -I reviewed and agree with nursing and triage notes Were old charts reviewed (outside hosp., previous admission, EMS record, old EKG, old radiological studies, urgent care reports/EKG's, intermediate records)? Report findings @ -No old charts were reviewed Differential Diagnosis (chest pain, altered mental status, abdominal pain women, abdominal pain men, vaginal bleeding, weakness, fever, dyspnea, syncope, headache, dizziness, GI bleed, back pain, seizure, CVA, palpatations, mental health, musculoskeletal)? @ -Differential Mental Health Depression, anxiety, bipolar, psychosis, schizophrenia, borderline personality, situational depression, adjustment disorder, behavioral disorder, brain tumor, malingering, substance abuse, encephalopathy, medication reaction, dementia, hypothyroidism, degenerative neurologic disorder, lupus.... This is not meant to be all-inclusive list EKG interpreted by me (3pts min.). @ -As above X-rays interpreted by me (1pt min.). @ -None done CT interpreted by me (1pt min.). @ -None done U/S interpreted by me (1pt. min.). @ -None done What testing was considered but not performed or refused? (CT, X-rays, U/S, labs)? Why? @ -None What meds were considered but not given or refused? Why? @ -None Did you discuss the management of the patient with other professionals (professionals i.e. MELY Sanchez, FINISH CARPENTER, lab, RT, psych nurse, social work lecturer, kraft mill operator, te acher, corrections officer, mental health case manager)? Give summary @ -I did attempt to call transferring practitioner however the office was closed. Was smoking cessation discussed for >3mins.? @ -No Was critical care preformed (if so, how long)? @ -No Were there social determinants of health that impacted care today? How? (Homelessness, low income, unemployed, alcoholism, drug addiction, transportation, low edu. Level, literacy, decrease access to med. care, snf, rehab)? @ -No Was there de-escalation of care discussed even if they declined (Discuss DNR or withdrawal of care, Hospice)? DNR status @ -Patient left AGAINST MEDICAL ADVICE. Patient denies any suicidal ideation at this time. Family is present and agrees with patient. There is no petition or ability to hold patient against her will at this time. Patient will leave AGAINST MEDICAL ADVICE. What co-morbidities impacted this encounter? (DM, HTN, Smoking, COPD, CAD, Cancer, CVA, ARF, Chemo, Hep., AIDS, mental health diagnosis, sleep apnea, morbid obesity)? @ -None Was patient admitted / discharged? Hospital course, mention meds given and route, prescriptions, significant lab abnormalities, going to OR and other pertinent info. @ -Patient presents with depression. Patient denies suicidal ideation. Family is present and believes that this was secondary to what patient states from previous suicidal ideation and is not current. Mental health services is not available to come evaluate patient at this time. Patient and family refused to stay and patient left AGAINST MEDICAL ADVICE Undiagnosed new problem with uncertain prognosis? @ -No Drug Therapy requiring intensive monitoring for toxicity (Heparin, Nitro, Insulin, Cardizem)? @ -No Were any procedures done? @ -No Diagnosis/symptom? @ -Depression Acute, or Chronic, or Acute on Chronic? @ -Acute Uncomplicated (without systemic symptoms) or Complicated (systemic symptoms)? @ -Default Side effects of treatment? @ -No Exacerbation, Progression, or Severe Exacerbation? @ -No Poses a threat to life or bodily function? How? (Chest pain, [place], [place], pneumonia, PE, COPD, DKA, ARF, appy, cholecystitis, CVA, Diverticulitis, Homicidal, Suicidal, threat to staff... and all critical care pts) @ -No Disposition Clinical Impression: Depression Disposition: LEFT AGAINST MEDICAL ADVICE Condition: Good Additional Instructions: Patient left prior to receiving instructions Is patient prescribed a controlled substance at d/c from ED?: No Referrals: Solomon Bower MD [Primary Care Provider] - 1-2 days Time of Disposition: 21:28
== END 2023-10-17 21:21 | disposition left against medical advice (07) ==
LOC: EC 17:51
DX: F32.A Depression, unspecified (principal); Z88.0 Allergy status to penicillin; Z53.29 Procedure and treatment not carried out because of patient's decision for other reasons
CPT/HCPCS: 82075; 99284

== ENCOUNTER 2024-06-30 15:39 | Outpatient (CLI) | payer OTHER ==
--- NOTE | 2024-06-30 17:14 | US ---
EXAMINATION TYPE: US OB >= 14 wk fetus DATE OF EXAM: 06/30/2024 COMPARISON: None CLINICAL INDICATION: Female, 23 years old with history of Comfirm gestation.; Patient unsure how far along. No symptoms. No care. Appt in July at [facility] for US TECHNIQUE: Transabdominal (TA) FINDINGS: GESTATIONAL AGE / DATING Physician Established: Not yet established Dates by LMP: LMP unknown Dates by First Scan: No previous this is first scan Dates by Current Scan: (22 weeks/0 days) EDC: 11/03/2024 SURVEY IUP: Single PLACENTA: Anterior PREVIA: No Previa DONAL: 12.3 cm Normal CERVICAL LENGTH (transabdominal: norm > 3.0cm): 3.2 cm BIOMETRY PRESENTATION: Vertex LIE: Longitudinal BPD: 5.52 cm *head measurements limited due to position 22 weeks / 6 days HC: 19.88 cm head measurements limited due to position 22 weeks / 1 days AC: 16.56 cm 21 weeks / 5 days FL: 3.56 cm 21 weeks / 2 days ESTIMATED WEIGHT IN GRAMS: 433 grams ESTIMATED WEIGHT IN LBS/OZ: 0 lbs. 15 oz. HC/AC: 1.20 FL/AC: 21% HEART RATE: 139 bpm RHYTHM: Normal IMPRESSION: Single live intrauterine gestation with estimated gestational age of 22 weeks. Measurements provided above. [facility], , 06/30/2024 5:11 PM
[2024-06-30 17:24] LABS: Appearance,Urine Turbid (Clear); Bacteria,Urine Many /hpf; Bilirubin,Urine Negative (Negative); Blood,Urine Trace (Negative); Color,Urine Light Yellow; Glucose,Urine (UA) Negative (Negative); Ketones,Urine 1+ (Negative); Leukocyte Esterase,Urine Large (Negative); Mucus,Urine Occasional /hpf; Nitrite,Urine Negative (Negative); PH, Urine 6.5 (5.0-8.0); Protein,Urine 1+ (Negative); RBC,Urine 13 /hpf (0-5); Squamous Epithelial Cell,Urine 61 /hpf (0-4); Urobilinogen,Urine <2.0 mg/dL (<2.0); WBC,Urine 68 /hpf (0-5)
[2024-06-30 17:40] LABS: Creatinine,Urine Random 102.8 mg/dL; Protein/Creatinine Ratio,Urine 0.097
[2024-06-30 18:14] LABS: Basophils % (A) 0 %; Eosinophils # (A) 0.1 k/uL (0-0.7); Eosinophils % (A) 1 %; HCT 34.4 % (34.0-46.0); HGB 11.5 gm/dL (11.4-16.0); Lymphocytes % (A) 8 %; MCH 28.9 pg (25.0-35.0); MCHC 33.3 g/dL (31.0-37.0); MCV 86.8 fL (80.0-100.0); Monocytes # (A) 0.5 k/uL (0-1.0); Monocytes % (A) 5 %; Neutrophils # (A) 9.7 k/uL (1.3-7.7); Neutrophils % (A) 85 %; Platelet Count 292 k/uL (150-450); RBC 3.96 m/uL (3.80-5.40); RDW 13.4 % (11.5-15.5); WBC 11.5 k/uL (3.8-10.6)
[2024-06-30 18:23] LABS: ALT 31 U/L (4-34); AST 24 U/L (14-36); African American GFR (CKD) >90 (>60 ml/min/1.73 sqM); Blood Urea Nitrogen 8 mg/dL (7-17); Non-African American GFR(CKD) >90 (>60 ml/min/1.73 sqM); Uric Acid 3.6 mg/dL (3.7-7.4)
[2024-06-30 19:02] VITALS: BP 140/94; PULSE 134; RESP 17; TEMP 98.5
--- NOTE | 2024-07-03 15:34 | P.MSEPDOC ---
Presenting Problems - Arrival Data Date of Arrival on Unit: 06/30/24 Time of Arrival on Unit: 15:39 Mode of Transport: Ambulatory - Complaint OB-Reason for Admission/Chief Complaint: Pain Comment: pt presents to triage for abd and back pain and shaking in her spine and arms, no pain on presentation to triage Medical History - Information : 1 Para: 0 Term: 0 : 0 Abortions: Spontaneous or Elective: 0 Number of Living Children: 0 - Gestational Age Gestational Age by MT (wks/days): 22 Weeks and 0 Days - History Complications: No Care Comment: no care to this point Review of Systems - Review of Systems Constitutional: No problems Breast: No problems ENT: No problems Cardiovascular: No problems Respiratory: No problems Gastrointestinal: No problems Genitourinary: No problems Musculoskeletal: No problems Neurological: No problems Skin: No problems Vital Signs - Temperature Temperature: 98.5 F Temperature Source: Temporal Artery Scan - Pulse Right Brachial Pulse Rate: 134 Pulse Assessment Method: Automatic Cuff - Respirations Respiratory Rate: 17 Oxygen Delivery Method: Room Air - Blood Pressure Right Arm Blood Pressure: 140/94 Blood Pressure Mean: 109 Blood Pressure Source: Automatic Cuff Medical Screen Scoring - Uterine Contractions Resting: Soft to palpation - Assessment - Baby A NST: Unable to detect FHT's Physician Notification - Physician Notified Physician Notified Date: 06/30/24 Physician Notified Time: 15:52 Physician: Lydia Jones Order Received: Yes - Notification Comment Comment: ultrasound performed and PIH labs done, pt's pulse down to normal and bp's back down, Maternal Triage Index - Maternal Triage Index Presenting for scheduled procedure w/no complaint: No - Stat/Priority 1 Stat Priority 1: No - Urgent/Priority 2 Urgent Priority 2: No - Prompt/Priority 3 Prompt Priority 3: No - Non-Urgent/Priority 4 Non-Urgent Priority 4: Yes Criteria Met for Priority 4: pt presents to triage for abd and back pain and shaking in her spine and arms, no pain on presentation to triage - Scheduled/Requesting Priority 5 Scheduled/Requesting Priority 5: No Disposition - Disposition OB Disposition: Triage, Discharge to home, Written follow up instructions reviewed Discharge Date: 06/30/24 Discharge Time: 18:45 I agree with the RN Medical Screening Exam: Yes Physician's MSE Comment: I have neither seen nor examined the patient Case reviewed; plan agreed upon as documented in EMR&OBIX.: Yes Diagnosis: OTHER SPECIFIED COMPLICATIONS OF LABOR AND DELIVERY
== END 2024-06-30 18:45 | disposition home or self-care (01) ==
LOC: FBPOP 15:39
PROVIDERS: ATTEND Obstetrics & Gynecology
DX: O26.892 Other specified pregnancy related conditions, second trimester (principal); R10.9 Unspecified abdominal pain; M54.50 Low back pain, unspecified; Z3A.22 22 weeks gestation of pregnancy; Z88.0 Allergy status to penicillin; Z88.6 Allergy status to analgesic agent
CPT/HCPCS: 36415; 82570; 84156; 82565; 84450; 84460; 84520; 84550; 85025; 81001; 76805; G0463; 99213

== ENCOUNTER 2024-08-30 18:08 | Outpatient (CLI) | payer OTHER ==
[2024-08-30 18:29] LABS: Glucose,Whole Blood 113 mg/dL (70-110)
[2024-08-30 20:11] LABS: Basophils % (A) 0 %; Eosinophils # (A) 0.1 k/uL (0-0.7); Eosinophils % (A) 2 %; HCT 34.9 % (34.0-46.0); HGB 11.3 gm/dL (11.4-16.0); Lymphocytes # (A) 1.1 k/uL (1.0-4.8); Lymphocytes % (A) 13 %; MCH 28.6 pg (25.0-35.0); MCHC 32.5 g/dL (31.0-37.0); MCV 88.1 fL (80.0-100.0); Mean Platelet Volume 8.3; Monocytes # (A) 0.4 k/uL (0-1.0); Monocytes % (A) 5 %; Neutrophils # (A) 6.6 k/uL (1.3-7.7); Neutrophils % (A) 79 %; Platelet Count 251 k/uL (150-450); RBC 3.96 m/uL (3.80-5.40); RDW 13.5 % (11.5-15.5); WBC 8.4 k/uL (3.8-10.6)
[2024-08-30 20:44] LABS: Appearance,Urine Turbid (Clear); Bacteria,Urine Many /hpf; Bilirubin,Urine Negative (Negative); Blood,Urine Trace (Negative); Budding Yeast,Urine Few /hpf; Calcium Oxalate Crystals,Urine Rare /hpf; Color,Urine Yellow; Glucose,Urine (UA) Negative (Negative); Ketones,Urine Trace (Negative); Leukocyte Esterase,Urine Large (Negative); Mucus,Urine Many /hpf; Nitrite,Urine Negative (Negative); Protein,Urine 1+ (Negative); RBC,Urine 27 /hpf (0-5); Specific Gravity,Urine 1.025 (1.001-1.035); Squamous Epithelial Cell,Urine 86 /hpf (0-4); Urobilinogen,Urine <2.0 mg/dL (<2.0); WBC,Urine 166 /hpf (0-5)
[2024-08-30 20:50] LABS: Creatinine,Urine Random 198.4 mg/dL
[2024-08-30 20:51] LABS: ALT 14 U/L (4-34); AST 18 U/L (14-36); African American GFR (CKD) >90 (>60 ml/min/1.73 sqM); Blood Urea Nitrogen 7 mg/dL (7-17); LDH 171 U/L (120-246); Non-African American GFR(CKD) >90 (>60 ml/min/1.73 sqM); Uric Acid 5.9 mg/dL (3.7-7.4)
[2024-08-30 20:54] LABS: Creatinine,Urine Random 200.1 mg/dL; Protein/Creatinine Ratio,Urine 0.055
[2024-08-30 21:22] VITALS: BP 157/100; PULSE 100; RESP 16; TEMP 98.3
--- NOTE | 2024-09-04 00:07 | P.MSEPDOC ---
Presenting Problems - Arrival Data Date of Arrival on Unit: 08/30/24 Time of Arrival on Unit: 18:08 Mode of Transport: Ambulatory - Complaint OB-Reason for Admission/Chief Complaint: Other Comment: pt presents to triage with c/o upper abdominal pressure/"pulsating" that began around 1700. Pt states the pressure is constant but denies it as being painful. Pt is also nauseated and "shakey" Medical History - Information : 1 Para: 0 Term: 0 : 0 Abortions: Spontaneous or Elective: 0 Number of Living Children: 0 - Gestational Age Gestational Age by MT (wks/days): 30 Weeks and 5 Days Review of Systems - Review of Systems Constitutional: No problems Breast: No problems ENT: No problems Cardiovascular: No problems Respiratory: No problems Gastrointestinal: No problems Genitourinary: No problems Musculoskeletal: No problems Neurological: No problems Skin: No problems Vital Signs - Temperature Temperature: 98.3 F Temperature Source: Oral - Pulse Right Brachial Pulse Rate: 100 Pulse Assessment Method: Automatic Cuff - Respirations Respiratory Rate: 16 Oxygen Delivery Method: Room Air O2 Sat by Pulse Oximetry: 100 - Blood Pressure Right Arm Blood Pressure: 157/100 Blood Pressure Mean: 119 Blood Pressure Source: Automatic Cuff Medical Screen Scoring - Cervical Exam Membranes: Intact - Assessment - Baby A Baseline FHR: 130 Heart Rate - NICHD Category: Category I (Normal) NST: Reactive Physician Notification - Physician Notified Physician Notified Date: 08/30/24 Physician Notified Time: 19:00 Physician: Bobo Mccartney New Order Received: Yes - Notification Comment Comment: 1899-Dr. Mccartney on unit, report given on maternal c/o constant upper abdominal pressure, nausea, shakiness, feeling hot, feeling like she "could pass out", and saw spots in her vision earlier today. Pt has no pain, no clonus, no SOB, and 1+ edema. BPs 157/100, 149/98, 140/96, and 136/94. Accucheck 113. NST reactive, no contractions noted, abdomen is soft and nontender. Orders to obtain all [facility] labs and call with results. 2054- Dr. Mccartney called with update. RN reviewed labs and blood pressures. Patient approved to be discharged home to take blood pressures at home and follow up in the office this week for blood pressure check. Patient to orally hydrate. Maternal Triage Index - Urgent/Priority 2 Urgent Priority 2: Yes Provider Notified: Bobo Mccartney Provider Notified Time: 19:00 Criteria Met for Priority 2: elevated blood bp Disposition - Disposition OB Disposition: Discharge to home Discharge Date: 08/30/24 Discharge Time: 21:04 I agree with the RN Medical Screening Exam: Yes Physician's MSE Comment: I have neither seen nor examined the patient. Case reviewed; plan agreed upon as documented in EMR&OBIX.: Yes Diagnosis: RELATED CONDITIONS, UNSPECIFIED, THIRD TRIMESTER
== END 2024-08-30 21:04 ==
LOC: FBPOP 18:08
PROVIDERS: ATTEND Obstetrics & Gynecology
DX: O26.93 Pregnancy related conditions, unspecified, third trimester (principal); Z3A.30 30 weeks gestation of pregnancy; Z88.0 Allergy status to penicillin; Z88.6 Allergy status to analgesic agent
CPT/HCPCS: 59025; 82570; 84156; 82565; 83615; 84450; 84460; 84520; 84550; 85025; 81001; G0463; 99215

== ENCOUNTER 2024-09-06 21:50 | Inpatient (IN) | payer OTHER ==
[2024-09-06] MEDS ORDERED: LABETALOL 5 MG/ML VIAL MDV IVP PRN (22:18)
[2024-09-06] MEDS ORDERED: hydrALAZINE HCL 20 MG/ML 1 ML VIAL IVP PRN (22:18)
[2024-09-06 23:16] LABS: Glucose,Whole Blood 76 mg/dL (70-110)
[2024-09-06] MEDS: LABETALOL 5 MG/ML VIAL MDV IVP PRN (23:25)
[2024-09-06] MEDS: LACTATED RINGERS 1,000 ML IV SCH (23:26)
[2024-09-06 23:32] LABS: Basophils % (A) 0 %; Eosinophils # (A) 0.1 k/uL (0-0.7); Eosinophils % (A) 1 %; HCT 38.5 % (34.0-46.0); HGB 12.4 gm/dL (11.4-16.0); Lymphocytes # (A) 1.2 k/uL (1.0-4.8); Lymphocytes % (A) 10 %; MCH 27.8 pg (25.0-35.0); MCHC 32.1 g/dL (31.0-37.0); MCV 86.5 fL (80.0-100.0); Mean Platelet Volume 9.3; Monocytes # (A) 0.6 k/uL (0-1.0); Monocytes % (A) 5 %; Neutrophils # (A) 9.9 k/uL (1.3-7.7); Neutrophils % (A) 82 %; Platelet Count 319 k/uL (150-450); RBC 4.45 m/uL (3.80-5.40); RDW 13.7 % (11.5-15.5); WBC 12.1 k/uL (3.8-10.6)
[2024-09-06 23:42] LABS: ALT 16 U/L (4-34); AST 20 U/L (14-36); African American GFR (CKD) >90 (>60 ml/min/1.73 sqM); Blood Urea Nitrogen 12 mg/dL (7-17); LDH 206 U/L (120-246); Non-African American GFR(CKD) >90 (>60 ml/min/1.73 sqM); Uric Acid 6.9 mg/dL (3.7-7.4)
[2024-09-07] MEDS: LABETALOL 5 MG/ML VIAL MDV IVP PRN (00:29)
[2024-09-07] MEDS: PANTOPRAZOLE 40 MG/10 ML VIAL IVP SCH (00:44)
--- NOTE | 2024-09-07 00:51 | P.HPOB ---
History of Present Illness H&P Date: 09/07/24 Chief Complaint: Cannot walk Ms. Zhou is a 23 year old at 31 weeks and 6 days with EDC of 11/03/2024 by 22 week US presenting with inability to walk due to heaviness in her legs for the past few hours. The swelling in her legs began 4 days ago and did not improve with elevation of the legs. The patient was late to care with her first visit in the office at 24 weeks. She does have a history of chronic hypertension, not on medications. On anatomy US, there was a suspected cardiac arrythmia for which there is a consultation with [facility] pending. There was also a marginal cord insertion noted. On growth ultrasound, IUGR was diagnosed with EFW 7%ile and AC 3.5%ile. The patient has begun surveillance with NSTs, BPPs, and UA dopplers. The patient also has a significant mental health history with suicide attempts, anxiety, depression, and bipolar disorder listed as diagnoses in her chart from previous admissions. Past Medical History Past Medical History: No Reported History History of Any Multi-Drug Resistant Organisms: None Reported Past Surgical History: Adenoidectomy, Ear Surgery, Tonsillectomy Smoking Status: Never smoker Medications and Allergies Home Medications Medication Instructions Recorded Confirmed Type Cholecalciferol (Vitamin D3) 1 tab PO ONCE 06/30/24 08/30/24 History [Vitamin D3 (500 Iu/5 ML)] Vit No.179/Iron/Folic 1 tab PO ONCE 06/30/24 08/30/24 History [ Tablet] Allergies Allergy/AdvReac Type Severity Reaction Status Date / Time amoxicillin AdvReac Rapid Verified 08/30/24 19:06 Heart Rate ibuprofen [From Motrin] AdvReac Rapid Verified 08/30/24 19:06 Heart Rate Penicillins AdvReac Rapid Verified 08/30/24 19:06 Heart Rate Exam Intake and Output 09/06/24 09/06/24 09/07/24 14:59 22:59 06:59 Other: Weight 80.286 kg Focused physical exam is performed. The patient is in no apparent distress, gina athing is non-labored. Abdomen gravid, non-tender. Extremities are non-tender, +2 non-pitting edema in the legs and +3 pitting edema in the feet/ankles. Extremities are noted to be cold to the touch. Right calf = left calf in size. heart tones reactive and reassuring on NST. Motor strength and sensation within normal limits in bilateral lower extremities. Results Result Diagrams: 09/06/24 23:14 09/06/24 23:14 Abnormal Lab Results - Last 24 Hours (Table) 09/06/24 09/06/24 Range/Units 23:14 23:14 WBC 12.1 H (3.8-10.6) k/uL Neutrophils # 9.9 H (1.3-7.7) k/uL Creatinine 0.51 L (0.52-1.04) mg/dL Assessment and Plan Assessment: 23 year old at 31 weeks and 6 days with a history of chronic HTN presenting with severe range blood pressures and inability to walk Plan: 1. cHTN with severe range BPs. Not on antihypertensives currently. Pre-eclampsia labs within normal limits, urine P:C ratio pending. s/p IV Labetalol 20 and 40mg with improvement in pressures. Will plan to start PO Procardia tomorrow morning. Monitor overnight. 2. Inability to walk. Heavy, "brick-like" sensation in the legs. Patient is noted to have +2 to +3 edema in bilateral legs. Will consult medicine for inability to walk. Appreciate recommendations. 3. 31 week intrauterine . Continuous EFM while severe range pressures, NSTs otherwise. Dispo: With observe overnight with consult to medicine pending. Continue to monitor BPs.
[2024-09-07 00:57] LABS: Creatinine,Urine Random 83.5 mg/dL
[2024-09-07 01:06] LABS: Appearance,Urine Cloudy (Clear); Bacteria,Urine Occasional /hpf; Bilirubin,Urine Negative (Negative); Blood,Urine Trace (Negative); Color,Urine Light Yellow; Glucose,Urine (UA) Negative (Negative); Ketones,Urine Negative (Negative); Leukocyte Esterase,Urine Small (Negative); Mucus,Urine Rare /hpf; Nitrite,Urine Negative (Negative); PH, Urine 6.5 (5.0-8.0); Protein,Urine 3+ (Negative); RBC,Urine 2 /hpf (0-5); Specific Gravity,Urine 1.012 (1.001-1.035); Squamous Epithelial Cell,Urine 20 /hpf (0-4); Urobilinogen,Urine <2.0 mg/dL (<2.0); WBC,Urine 5 /hpf (0-5)
[2024-09-07 01:11] LABS: Amphetamine Screen,Urine Not Detected (NotDetected); Barbiturate Screen,Urine Not Detected (NotDetected); Benzodiazepines Screen,Urine Not Detected (NotDetected); Cocaine Screen,Urine Not Detected (NotDetected); Methadone Screen, Urine Not Detected (NotDetected); Opiate Screen,Urine Not Detected (NotDetected); Oxycodone Screen, Urine Not Detected (NotDetected); Phencyclidine Screen,Urine Not Detected (NotDetected); Tricyclic Antidepressant,Urine Not Detected (NotDetected); Urn Cannabinoid Scrn Not Detected (NotDetected)
[2024-09-07] MEDS: NIFEdipine XL 30 MG TAB.ER.24 PO SCH (03:51)
[2024-09-07] MEDS ORDERED: PANTOPRAZOLE 40 MG/10 ML VIAL IVP SCH (09:00)
[2024-09-07] MEDS: NIFEdipine XL 30 MG TAB.ER.24 PO STA (09:38)
[2024-09-07 11:21] LABS: African American GFR (CKD) >90 (>60 ml/min/1.73 sqM); Anion Gap 10 mmol/L; Blood Urea Nitrogen 11 mg/dL (7-17); Carbon Dioxide 19 mmol/L (22-30); Chloride 106 mmol/L (98-107); Glucose 73 mg/dL (74-99); Magnesium 1.9 mg/dL (1.6-2.3); Non-African American GFR(CKD) >90 (>60 ml/min/1.73 sqM); Potassium 4.5 mmol/L (3.5-5.1); Sodium 135 mmol/L (137-145)
[2024-09-07 12:07] LABS: Appearance,Urine Cloudy (Clear); Bacteria,Urine Occasional /hpf; Bilirubin,Urine Negative (Negative); Blood,Urine Negative (Negative); Color,Urine Light Yellow; Glucose,Urine (UA) Negative (Negative); Ketones,Urine Negative (Negative); Leukocyte Esterase,Urine Trace (Negative); Mucus,Urine Few /hpf; Nitrite,Urine Negative (Negative); PH, Urine 6.5 (5.0-8.0); Protein,Urine 3+ (Negative); RBC,Urine 5 /hpf (0-5); Specific Gravity,Urine 1.017 (1.001-1.035); Squamous Epithelial Cell,Urine 8 /hpf (0-4); Urobilinogen,Urine <2.0 mg/dL (<2.0); WBC,Urine 15 /hpf (0-5)
[2024-09-07 13:51] LABS: Creatinine,Urine Random 108.2 mg/dL
--- NOTE | 2024-09-07 14:21 | P.CONS ---
History of Present Illness - Reason for Consult Consult date: 09/07/24 - History of Present Illness Patient is a 23-year-old female at 31 weeks and 6 days with hypertension here for evaluation of bilateral lower extremity swelling. Patient reported that 4 days ago her legs began to swell and felt stiff and "heavy like a brick". She also reported associated tremors began yesterday and would usually last for hours when she is awake. She denied seizure history, loss of consciousness, recent trauma or loss of control of urination or defecation. She denied fever, chills, calf pain, shortness of breath, chest pain, palpitations, recent illness, abdominal pain, headaches, focal weakness, facial symmetry, changes in vision, changes in speech, nausea, vomiting, diarrhea, dysuria, hematuria, changes in sensation, bruising, bleeding, jaundice. Labs on evaluation showed WBC 12.1, hemoglobin 12.4, platelet count 319,000, BUN 12, creatinine 0.51, glucose 76, AST 20, ALT 16, lactic dehydrogenase 206. Urinalysis showed cloudy appearance, +3 protein, trace blood, small leukocyte esterase, 20 squamous epithelial cells, occasional bacteria, mucus rare, urine total protein greater than 600. UDS negative. Vitals on consult showed pulse rate 84, respiratory rate 14, blood pressure 1 31/85, O2 saturation 90% on room air Review of systems: Pertinent positives and negatives as discussed in HPI, a complete review of systems was performed and all other systems are negative. Physical examination: Vital signs reviewed General: non toxic, no distress, appears at stated age, normal weight Derm: no unusual rashes/lesions, cool and clammy, sweating noted Head: atraumatic, normocephalic, symmetric Eyes: EOMI, no lid lag, anicteric sclera, pupils equal round reactive to light ENT: Nose and ears atraumatic Neck: No cervical lymphadenopathy, trachea midline, supple Mouth: no lip lesion, mucus membranes moist Cardiovascular: S1S2 reg, no murmur Lungs: CTA bilateral, no rhonchi, no rales, no accessory muscle use Abdominal: soft, nondistended, nontender to palpation, no guarding Ext: muscle strength 5 out of 5 in all 4 extremities grossly, no gross muscle atrophy, no contractures, positive dorsalis pedis pulse, bilateral nonpitting lower extremity swelling up to the thighs Neuro: CN II-XI grossly intact, no gross focal neuro deficits, tremors of legs and arms noted, at rest Psych: Alert, oriented, appropriate affect and mood Assessment/Plan: 23-year-old female at 31 weeks and 6 days with hyp ertension here for evaluation of bilateral lower extremity swelling and hypertension #. Hypertension -Creatinine 0.51, AST 20, ALT 16, lactic dehydrogenase 206, platelet count 319,000 -Continue with nifedipine 60 mg p.o. daily -Monitor vital signs #. Bilateral lower extremity swelling, rule out mechanical/endocrine/metabolic etiologies -Urinalysis showed cloudy appearance, +3 protein, trace blood, small leukocyte esterase, 20 squamous epithelial cells, occasional bacteria, mucus rare, urine total protein greater than 600 -Patient does have proteinuria but not a clean sample -Will also check CMP tomorrow to evaluate her total protein and albumin levels -Echocardiogram ordered -D-dimer, TSH, BMP ordered -Repeat clean-catch urinalysis -Consider venous Doppler ultrasound bilateral lower extremities if D-dimer positive #. 31-week intrauterine -Currently on EFM -Management per obstetrics service Carolin Caruso MD PGY1/[employer] Internal Medicine Dictation was produced using [employer] dictation software. please excuse any grammatical, word or spelling errors. We appreciate being part of this patient's care. Thank you for this consult. Thank you for allowing us to participate in the care of this pleasant patient. Do not hesitate to contact us with questions. Someone can be reached from the [facility] hospitalist group all hours of the day at [phone] or via [employer]. I have seen and evaluated the patient today. Discussed with the resident and agree with the residents finding and plan as documented in the resident's note. Changes highlighted in blue font. Past Medical History Past Medical History: No Reported History History of Any Multi-Drug Resistant Organisms: None Reported Past Surgical History: Adenoidectomy, Ear Surgery, Tonsillectomy Past Anesthesia/Blood Transfusion Reactions: No Reported Reaction Past Psychological History: No Psychological Hx Reported Smoking Status: Never smoker Past Alcohol Use History: None Reported Past Drug Use History: None Reported Medications and Allergies Home Medications Medication Instructions Recorded Confirmed Type Cholecalciferol (Vitamin D3) 1 tab PO ONCE 06/30/24 08/30/24 History [Vitamin D3 (500 Iu/5 ML)] Vit No.179/Iron/Folic 1 tab PO ONCE 06/30/24 08/30/24 History [ Tablet] Allergies Allergy/AdvReac Type Severity Reaction Status Date / Time amoxicillin AdvReac Rapid Verified 08/30/24 19:06 Heart Rate ibuprofen [From Motrin] AdvReac Rapid Verified 08/30/24 19:06 Heart Rate Penicillins AdvReac Rapid Verified 08/30/24 19:06 Heart Rate Physical Exam Vitals: Vital Signs Temp Pulse Resp BP Pulse Ox 09/07/24 05:00 74 16 140/90 09/07/24 04:30 74 16 151/99 09/07/24 03:00 73 15 155/96 09/07/24 02:00 97.0 F L 75 16 09/07/24 01:04 37.0 F L 92 16 162/106 100 09/06/24 22:06 98.6 F 88 16 170/102 100 Intake and Output 09/06/24 09/07/24 09/07/24 22:59 06:59 14:59 Output Total 100 Balance -100 Output: Urine 100 Other: Weight 80.286 kg 80.286 kg Results CBC & Chem 7: 09/06/24 23:14 09/07/24 10:21 Labs: Abnormal Lab Results - Last 24 Hours (Table) 09/06/24 09/06/24 09/07/24 Range/Units 23:14 23:14 00:16 WBC 12.1 H (3.8-10.6) k/uL Neutrophils # 9.9 H (1.3-7.7) k/uL Creatinine 0.51 L (0.52-1.04) mg/dL Urine Appearance Cloudy H (Clear) Urine Protein 3+ H (Negative) Urine Blood Trace H (Negative) Ur Leukocyte Esterase Small H (Negative) Ur Squamous Epith Cells 20 H (0-4) /hpf Urine Bacteria Occasional H (None) /hpf Urine Mucus Rare H (None) /hpf
--- NOTE | 2024-09-07 14:45 | US ---
EXAMINATION TYPE: US venous doppler duplex LE BI DATE OF EXAM: 09/07/2024 1:45 PM COMPARISON: NONE CLINICAL INDICATION: Female, 23 years old with history of lower extremity swelling; Leg edema, Pain TECHNIQUE: The lower extremity deep venous system is examined utilizing real time linear array sonog argenis with graded compression, color doppler sonography, and spectral doppler. SIDE PERFORMED: Bilateral FINDINGS: VESSELS IMAGED: Common Femoral Vein Deep Femoral Vein Greater Saphenous Vein * Femoral Vein Popliteal Vein Small Saphenous Vein * Proximal Calf Veins (* superficial vessels) Right Leg: No evidence of DVT, Color Doppler imaging shows patency of the vessels. Spectral waveform s are within normal limits. Left Leg: No evidence of DVT, Color Doppler imaging shows patency of the vessels. Spectral waveforms are within normal limits. IMPRESSION: No ultrasound evidence for deep venous thrombosis. [facility], , 09/07/2024 2:43 PM
--- NOTE | 2024-09-07 17:55 | CA ---
Transthoracic Echo Report Name: Shwetha Zhou Age: 23 Gender: F : 2000 Exam Date: 09/07/2024 12:53 Exam Location: [place] [facility] Ht (in): 66 Wt (lb): 177 Ordering Physician: Tod Sow MD Attending/Referring Phys: [id number], Juanjose Jawbone Puller Venus Lopez, SILVINA Procedure CPT: Indications: LE edema, assess for cardiomyopathy Cardiac Hx: Technical Quality: Fair Contrast 1: Total Dose (mL): Contrast 2: Total Dose (mL): MEASUREMENTS (Male / Female) Normal Values 2D ECHO LV Diastolic Diameter PLAX 4.6 cm 4.2 - 5.9 / 3.9 - 5.3 cm LV Systolic Diameter PLAX 3.5 cm IVS Diastolic Thickness 1.1 cm 0.6 - 1.0 / 0.6 - 0.9 cm LVPW Diastolic Thickness 1.0 cm 0.6 - 1.0 / 0.6 - 0.9 cm LV Relative Wall Thickness 0.5 RV Internal Dim ED PLAX 1.8 cm LA Systolic Diameter LX 3.6 cm 3.0 - 4.0 / 2.7 - 3.8 cm LV Diastolic Volume MOD BP 84.0 cm??? 67 - 155 / 56 - 104 cm??? LV Systolic Volume MOD BP 45.7 cm??? - 58 / 19 - 49 cm??? LV Ejection Fraction MOD BP 45.6 % >= 55 % LV Cardiac Index MOD BP 1920.3 cm???/min???m??? LV Diastolic Volume MOD 4C 83.9 cm??? LV Systolic Volume MOD 4C 47.4 cm??? LV Ejection Fraction MOD 4C 43.4 % LV Cardiac Index MOD 4C 1825.9 cm???/min???m??? LV Diastolic Length 4C 7.6 cm LV Systolic Length 4C 6.7 cm LV Diastolic Volume MOD 2C 82.2 cm??? LV Systolic Volume MOD 2C 43.3 cm??? LV Ejection Fraction MOD 2C 47.4 % LV Cardiac Index MOD 2C 1954.0 cm???/min???m??? LV Diastolic Length 2C 7.4 cm LV Systolic Length 2C 6.6 cm LA Volume 76.1 cm??? 18 - 58 / 22 - 52 cm??? LA Volume Index 38.9 cm???/m??? 16 - 28 cm???/m??? M-MODE Aortic Root Diameter MM 3.0 cm LA Systolic Diameter MM 3.4 cm LA Ao Ratio MM 1.1 AV Cusp Separation MM 2.1 cm DOPPLER MV Area PHT 4.0 cm??? Mitral E Point Velocity 113.1 cm/s Mitral A Point Velocity 70.4 cm/s Mitral E to A Ratio 1.6 MV Deceleration Time 187.7 ms FINDINGS Left Ventricle Left ventricular ejection fraction is estimated at 45 to 50% with mild global hypokinesis.left ventricular cavity size normal. Right Ventricle Normal right ventricular size and function. Right ventricular systolic pressure within normal limits. Right Atrium Normal right atrial size. Left Atrium Mildly increased left atrial area. Mitral Valve Structurally normal mitral valve. Trace mitral regurgitation. No mitral stenosis. Aortic Valve Trileaflet aortic valve. No aortic valve stenosis or regurgitation. Tricuspid Valve Structurally normal tricuspid valve. Trace tricuspid regurgitation. No tricuspid stenosis. Pulmonic Valve Structurally normal pulmonic valve. Trace pulmonic regurgitation. No pulmonic stenosis. Pericardium No pericardial or pleural effusion. Aorta Normal size aortic root and proximal ascending aorta. CONCLUSIONS 1. Mildly impaired left ventricular systolic function 2. Trace mitral and tricuspid regurgitation Previewed by: Dr. Andrei Crenshaw MD (Electronically Signed) Final Date: 07 September 2024 17:54
[2024-09-07] MEDS ORDERED: CEFDINIR 300 MG CAP PO SCH (21:00)
[2024-09-07] MEDS: ACETAMINOPHEN TAB 500 MG TAB PO STA (21:30)
[2024-09-07] MEDS: ONDANSETRON 4 MG/2 ML VIAL IVP PRN (21:31)
[2024-09-08] MEDS: polyethylene glycoL 3350 17 GM POWD.PACK PO SCH (00:27)
[2024-09-08 06:39] LABS: Basophils # (A) 0.1 k/uL (0-0.2); Basophils % (A) 0 %; Eosinophils # (A) 0.1 k/uL (0-0.7); Eosinophils % (A) 1 %; HCT 38.9 % (34.0-46.0); HGB 12.2 gm/dL (11.4-16.0); Lymphocytes # (A) 1.4 k/uL (1.0-4.8); Lymphocytes % (A) 10 %; MCHC 31.3 g/dL (31.0-37.0); MCV 89.4 fL (80.0-100.0); Monocytes # (A) 0.7 k/uL (0-1.0); Monocytes % (A) 5 %; Neutrophils # (A) 11.2 k/uL (1.3-7.7); Neutrophils % (A) 82 %; Platelet Count 325 k/uL (150-450); RBC 4.35 m/uL (3.80-5.40); RDW 13.4 % (11.5-15.5); WBC 13.7 k/uL (3.8-10.6)
[2024-09-08 06:56] LABS: ALT 15 U/L (4-34); AST 23 U/L (14-36); African American GFR (CKD) >90 (>60 ml/min/1.73 sqM); Alkaline Phosphatase 112 U/L (38-126); Anion Gap 10 mmol/L; Blood Urea Nitrogen 13 mg/dL (7-17); Carbon Dioxide 16 mmol/L (22-30); Chloride 108 mmol/L (98-107); Glucose 74 mg/dL (74-99); Non-African American GFR(CKD) >90 (>60 ml/min/1.73 sqM); Potassium 4.8 mmol/L (3.5-5.1); Sodium 134 mmol/L (137-145); Total Bilirubin 0.4 mg/dL (0.2-1.3); Total Protein 5.7 g/dL (6.3-8.2)
[2024-09-08] MEDS: NIFEdipine XL 90 MG TAB.ER.24 PO SCH (08:12)
[2024-09-08 09:00] VITALS: TEMP 97.8
--- NOTE | 2024-09-08 09:01 | P.PN ---
Subjective Progress Note Date: 09/08/24 Principal diagnosis: Chronic hypertension with superimposed pre-eclampsia Patient feeling better this morning. States swelling has improved and she is walking more easily. Feeling good movement. No complaints. Objective - Vital Signs Vital signs: Vital Signs Temp 96.6 F L 09/07/24 19:00 Pulse 120 H 09/07/24 21:00 Resp 20 09/07/24 21:00 BP 155/95 09/08/24 05:00 Pulse Ox 98 09/07/24 21:00 FiO2 Intake & Output 09/07/24 09/08/24 09/08/24 18:59 06:59 18:59 Other: # Voids 2 2 # Bowel Movements 1 - Exam Focused physical exam is performed. The patient is in no apparent distress, breathing is non-labored. Abdomen gravid, non-tender. Extremities with +1 to +2 pitting edema - Labs CBC & Chem 7: 09/08/24 06:17 09/08/24 06:17 Labs: Abnormal Lab Results - Last 24 Hours (Table) 09/07/24 09/07/24 09/07/24 Range/Units 10:21 10:21 11:15 WBC (3.8-10.6) k/uL Neutrophils # (1.3-7.7) k/uL D-Dimer 0.90 H (<0.60) mg/L FEU Sodium 135 L (137-145) mmol/L Chloride (98-107) mmol/L Carbon Dioxide 19 L (22-30) mmol/L Creatinine 0.48 L (0.52-1.04) mg/dL Glucose 73 L (74-99) mg/dL Total Protein (6.3-8.2) g/dL Albumin (3.5-5.0) g/dL Urine Appearance Cloudy H (Clear) Urine Protein 3+ H (Negative) Ur Leukocyte Esterase Trace H (Negative) Urine WBC 15 H (0-5) /hpf Ur Squamous Epith Cells 8 H (0-4) /hpf Urine Bacteria Occasional H (None) /hpf Urine Mucus Few H (None) /hpf 09/08/24 09/08/24 Range/Units 06:17 06:17 WBC 13.7 H (3.8-10.6) k/uL Neutrophils # 11.2 H (1.3-7.7) k/uL D-Dimer (<0.60) mg/L FEU Sodium 134 L (137-145) mmol/L Chloride 108 H (98-107) mmol/L Carbon Dioxide 16 L (22-30) mmol/L Creatinine 0.49 L (0.52-1.04) mg/dL Glucose (74-99) mg/dL Total Protein 5.7 L (6.3-8.2) g/dL Albumin 3.0 L (3.5-5.0) g/dL Urine Appearance (Clear) Urine Protein (Negative) Ur Leukocyte Esterase (Negative) Urine WBC (0-5) /hpf Ur Squamous Epith Cells (0-4) /hpf Urine Bacteria (None) /hpf Urine Mucus (None) /hpf Assessment and Plan Assessment: 23 year old at 32 weeks and 0 days with a history of chronic HTN with superimposed pre-eclampsia Plan: 1. cHTN with superimposed pre-eclampsia. Proteinuria on urine sample. BPs normotensive to intermittently severe range overnight. Increase daily Procardia XL from 60 to 90mg daily. 2. Heart failure with reduced ejection fraction - consult pending to cardiology. Appreciate recs. Dispo: Stabilize BPs. Likely transfer for delivery at 34 weeks for cHTN with superimposed preE to a higher acuity hospital, if not sooner.
--- NOTE | 2024-09-08 09:29 | US ---
EXAMINATION TYPE: US OB BPP wo non-stress DATE OF EXAM: 09/08/2024 COMPARISON: OB growth US 2023 CLINICAL INDICATION: Female, 23 years old with history of PIH; PIH. Known cardiac anomaly and severe IUGR per RN. TECHNIQUE: Transabdominal (TA). Scoring by the leadership program internship during real-time assessment. FINDINGS: BPP PARAMETERS: PRESENTATION: Vertex HEART RATE: 128 bpm RHYTHM: DONAL: 10.1 cm DIAPHRAGM IMAGED: Yes BPP SCORIN. Breathin (1 episode of breathing of 30 second duration in 30 minutes of scanning time) 2. Movement: 2 (at least 3 discrete body movements in 30 minutes) 3. Tone: 2 (1 episode of active flexion/extension of limb) 4. DONLA: 2 (DONAL index > 5cm) BREAD AND PASTRY BAKER NOTES: IMPRESSION: TOTAL SCORE: 6 / 8 [facility], , 09/08/2024 9:27 AM
[2024-09-08] MEDS: NIFEdipine XL 30 MG TAB.ER.24 PO STA (10:47)
[2024-09-08] MEDS ORDERED: CALCIUM GLUCONATE 1 GM/10 ML VIAL IV PRN (12:15)
[2024-09-08] MEDS: hydrALAZINE HCL 20 MG/ML 1 ML VIAL IVP PRN (12:36)
--- NOTE | 2024-09-08 12:36 | P.NPCON ---
History of Present Illness - Reason for Consult metabolic acidosis - History of Present Illness Patient is a 23-year-old female seen in the [facility]. Patient is at 32 weeks of gestation. She is being treated for preeclampsia. Maintained on Procardia UA shows 3+ protein. Trace proteinuria noted in 2002 and 2015 as well Echocardiogram showed ejection fraction 45 to 50% with global hypokinesis. Serum creatinine is 0.48 mg/dL, platelet count of 325,000. Patient is alert oriented x 3. Blood pressure is elevated with most recent reading at 117/102. It was 166/101 earlier this morning. Patient reports having had diarrhea from lactose intolerance yesterday and this morning. Past Medical History Past Medical History: No Reported History History of Any Multi-Drug Resistant Organisms: None Reported Past Surgical History: Adenoidectomy, Ear Surgery, Tonsillectomy Past Anesthesia/Blood Transfusion Reactions: No Reported Reaction Past Psychological History: No Psychological Hx Reported Smoking Status: Never smoker Past Alcohol Use History: None Reported Past Drug Use History: None Reported Medications and Allergies Home Medications Medication Instructions Recorded Confirmed Type Cholecalciferol (Vitamin D3) 1 tab PO ONCE 06/30/24 08/30/24 History [Vitamin D3 (500 Iu/5 ML)] Vit No.179/Iron/Folic 1 tab PO ONCE 06/30/24 08/30/24 History [ Tablet] Allergies Allergy/AdvReac Type Severity Reaction Status Date / Time amoxicillin AdvReac Rapid Verified 08/30/24 19:06 Heart Rate ibuprofen [From Motrin] AdvReac Rapid Verified 08/30/24 19:06 Heart Rate Penicillins AdvReac Rapid Verified 08/30/24 19:06 Heart Rate Physical Exam Vitals: Vital Signs Temp Pulse Resp BP Pulse Ox 09/08/24 11:00 117 H 117/102 09/08/24 09:00 89 106/106 09/08/24 07:00 97.8 F 89 16 159/110 99 09/08/24 05:00 155/95 09/08/24 03:00 166/101 09/08/24 01:00 137/94 09/07/24 23:00 147/94 09/07/24 21:00 120 H 20 147/102 98 09/07/24 19:00 96.6 F L 95 15 132/86 100 09/07/24 17:00 98.4 F 95 15 119/73 100 09/07/24 15:18 98 16 138/88 98 09/07/24 13:33 98.0 F 93 14 140/93 97 Intake and Output 09/07/24 09/08/24 09/08/24 22:59 06:59 14:59 Other: # Voids 1 2 # Bowel Movements 1 Patient is awake, comfortable, alert oriented x 3 Examination of the heart S1 and S2 Examination lungs bilateral breath sounds are heard Abdomen is soft, monitoring in progress Examination of lower extremities shows no significant edema [employer] exam grossly intact Results - Lab Results Most recent lab results Calcium 9.0 mg/dL (8.4-10.2) 09/08/24 06:17 Magnesium 1.9 mg/dL (1.6-2.3) 09/07/24 10:21 Urine Creatinine 108.2 mg/dL 09/07/24 11:15 Urine Total Protein >600.0 mg/dL 09/07/24 11:15 09/08/24 06:17 09/08/24 06:17 Assessment and Plan Assessment: 1. [place] metabolic acidosis possibly related to recent diarrhea. Currently being treated for preeclampsia. Recheck BMP 2. Preeclampsia currently maintained on Procardia. 3. Hypertension associated with preeclampsia, maintained on Procardia 4. Cardiomyopathy with a EF noted to be 45 to 50% on echocardiogram with global hypokinesis, cardiology on consult 5. Hypervolemia. 6. Proteinuria, noted on UA in 2016 as well. Patient will need f/u as outpatient post . Plan: Recommend repeat BMP Agree with transfer out to [employer] Continue with Procardia Consider IV Lasix x 1 Patient will need outpatient follow-up for proteinuria which she has had since 2016
[2024-09-08] MEDS: MAGNESIUM SULFATE GM 6 GM in SODIUM CHLORIDE 0.9% 100 ML IVPB ONE (13:15)
[2024-09-08 13:38] LABS: Basophils # (A) 0.1 k/uL (0-0.2); Basophils % (A) 0 %; Eosinophils # (A) 0.2 k/uL (0-0.7); Eosinophils % (A) 1 %; HGB 12.1 gm/dL (11.4-16.0); Lymphocytes # (A) 1.5 k/uL (1.0-4.8); Lymphocytes % (A) 11 %; MCH 27.7 pg (25.0-35.0); MCHC 31.8 g/dL (31.0-37.0); MCV 87.2 fL (80.0-100.0); Mean Platelet Volume 8.1; Monocytes # (A) 0.6 k/uL (0-1.0); Monocytes % (A) 5 %; Neutrophils # (A) 10.5 k/uL (1.3-7.7); Neutrophils % (A) 80 %; Platelet Count 361 k/uL (150-450); RBC 4.36 m/uL (3.80-5.40); RDW 13.5 % (11.5-15.5); WBC 13.1 k/uL (3.8-10.6)
--- NOTE | 2024-09-08 13:41 | P.CRDCN ---
History of Present Illness Consult date: 09/08/24 Reason for Consult (text): Systolic heart failure exacerbation, History of present illness: This is a 23-year-old female with past medical history of at 31-32 weeks. We have been asked to evaluate the patient for systolic heart failure exacerbation and . Patient gives history that she did not have prior history of hypertension before her . She apparently was found to have high blood pressure during her office visit and medication use was discussed but she was not on a antihypertensive prior to presentation to the hospital. Patient states for the past 2 days she was not able to stand or walk and that is the reason that she came into the hospital. She has had increasing edema to the lower extremities as well as the upper extremities that has been going on for the past week. She states she had a little shortness of breath. No chest pain. No dizziness. She states she has some palpitations but she feels that it is related to increased stress. She denies history of asthma. No history of ble eding. No history of seizures. She is normally active. She presented to the hospital with a blood pressure of 170/102. Patient has been given Procardia, hydralazine, IV magnesium with improvement of her blood pressure only briefly. Blood pressure at this time is 177/102 and heart rate 117. Echocardiogram revealed EF of 45 to 50%, trace mitral and tricuspid regurgitation. Arrangements have been started for patient be transferred to [facility]. -EKG: Will be obtained -Venous Doppler is negative for DVT bilateral lower extremities -Laboratory studies: WBC 13.7, hemoglobin 12.2, sodium 134, potassium 4.8, creatinine 0.49. Magnesium 1.9. -Home cardiac medications: None Review Of Systems: At the time of my exam: CONSTITUTIONAL: Denies fever or chills. HEENT: Denies blurred vision, vision changes, or eye pain. Denies hemoptysis CARDIOVASCULAR: Denies chest pain. Denies orthopnea. Denies PND. Denies palpitations. Reports upper and lower extremity edema RESPIRATORY: Denies shortness of breath. GASTROINTESTINAL: Denies abdominal pain. Denies nausea or vomiting. HEMATOLOGIC: Denies bleeding disorders. GENITOURINARY: Denies any blood in urine. SKIN: Denies puritis. Denies rash. Physical examination: Gen: This is a 23-year-old female in no acute respiratory distress VS: reviewed HEENT: Head is atraumatic, normocephalic. Pupils equal, round. Sclerae is anicteric. NECK: Supple. No JVD. LUNGS: Clear to auscultation. No wheezes or rhonchi. No intercostal retractions. HEART: Regular rate and rhythm. No murmur. ABDOMEN: . EXTREMITIES: +2 bilat lower extremity edema. No calf tenderness. NEUROLOGICAL: Patient is awake, alert and oriented x3. Assessment: Preeclampsia Cardiomyopathy with EF of 45 to 50% Uncontrolled hypertension Metabolic acidosis Proteinuria Plan: Patient is currently on: Procardia 90 mg daily and labetalol as needed Obtain EKG Dr. Crenshaw has spoken with clinical lab clerk at [facility] to aid in transfer to [facility] Once obtained, please fax EKG along with echocardiogram report and cardiology note to [facility] as requested. Thank you kindly for this consultation. Nurse practitioner note has been reviewed, I agree with documented findings and plan of care. Patient was seen and examined. Past Medical History Past Medical History: No Reported History History of Any Multi-Drug Resistant Organisms: None Reported Past Surgical History: Adenoidectomy, Ear Surgery, Tonsillectomy Past Anesthesia/Blood Transfusion Reactions: No Reported Reaction Past Psychological History: No Psychological Hx Reported Smoking Status: Never smoker Past Alcohol Use History: None Reported Past Drug Use History: None Reported Medications and Allergies Home Medications Medication Instructions Recorded Confirmed Type Cholecalciferol (Vitamin D3) 1 tab PO ONCE 06/30/24 08/30/24 History [Vitamin D3 (500 Iu/5 ML)] Vit No.179/Iron/Folic 1 tab PO ONCE 06/30/24 08/30/24 History [ Tablet] Allergies Allergy/AdvReac Type Severity Reaction Status Date / Time amoxicillin AdvReac Rapid Verified 08/30/24 19:06 Heart Rate ibuprofen [From Motrin] AdvReac Rapid Verified 08/30/24 19:06 Heart Rate Penicillins AdvReac Rapid Verified 08/30/24 19:06 Heart Rate Physical Exam Vitals: Vital Signs Temp Pulse Resp BP Pulse Ox 09/08/24 11:00 117 H 117/102 09/08/24 09:00 89 106/106 09/08/24 07:00 97.8 F 89 16 159/110 99 09/08/24 05:00 155/95 09/08/24 03:00 166/101 09/08/24 01:00 137/94 09/07/24 23:00 147/94 09/07/24 21:00 120 H 20 147/102 98 09/07/24 19:00 96.6 F L 95 15 132/86 100 09/07/24 17:00 98.4 F 95 15 119/73 100 09/07/24 15:18 98 16 138/88 98 09/07/24 13:33 98.0 F 93 14 140/93 97 Intake and Output 09/07/24 09/08/24 09/08/24 22:59 06:59 14:59 Other: # Voids 1 2 # Bowel Movements 1 Results 09/08/24 13:20 09/08/24 13:20 Cardiac Enzymes 09/08/24 Range/Units 06:17 AST 23 (14-36) U/L CBC 09/08/24 Range/Units 06:17 WBC 13.7 H (3.8-10.6) k/uL RBC 4.35 (3.80-5.40) m/uL Hgb 12.2 (11.4-16.0) gm/dL Hct 38.9 (34.0-46.0) % Plt Count 325 (150-450) k/uL Comprehensive Metabolic Panel 09/08/24 Range/Units 06:17 Sodium 134 L (137-145) mmol/L Potassium 4.8 (3.5-5.1) mmol/L Chloride 108 H (98-107) mmol/L Carbon Dioxide 16 L (22-30) mmol/L BUN 13 (7-17) mg/dL Creatinine 0.49 L (0.52-1.04) mg/dL Glucose 74 (74-99) mg/dL Calcium 9.0 (8.4-10.2) mg/dL AST 23 (14-36) U/L ALT 15 (4-34) U/L Alkaline Phosphatase 112 (38-126) U/L Total Protein 5.7 L (6.3-8.2) g/dL Albumin 3.0 L (3.5-5.0) g/dL Current Medications Generic Name Dose Route Start Last Admin Trade Name Freq PRN Reason Stop Dose Admin Acetaminophen 650 mg 09/08/24 03:00 Acetaminophen Tab 325 Mg Tab PO Q6HR PRN Fever and/ or Pain Calcium Gluconate 1 gm 09/08/24 12:15 Calcium Gluconate 1 Gm/10 Ml Vial IV 10/08/24 12:14 ONCE PRN Respiratory or Cardiac Arrest Lactated Ringer's 1,000 mls @ 20 mls/hr 09/06/24 22:30 09/08/24 00:26 Lactated Ringers IV Not Given .Q24H YUNIEL Magnesium Sulfate 20 gm/ IV 500 mls @ 50 mls/hr 09/08/24 12:15 Solution IV .Q10H YUNIEL 2 GM/HR Labetalol HCl 80 mg 09/06/24 22:18 Labetalol 5 Mg/Ml Vial Mdv IVP 09/08/24 22:20 ONCE PRN Hypertension Nifedipine 90 mg 09/08/24 09:00 09/08/24 08:12 Nifedipine Xl 90 Mg Tab.Er.24 PO 90 mg DAILY YUNIEL Administration Ondansetron HCl 4 mg 09/07/24 00:28 09/07/24 21:31 Ondansetron 4 Mg/2 Ml Vial IVP 4 mg Q6HR PRN Administration Nausea And Vomiting Pantoprazole Sodium 40 mg 09/09/24 07:30 Pantoprazole 40 Mg Tablet PO AC-BRKFST YUNIEL Polyethylene Glycol 17 gm 09/07/24 22:45 09/08/24 08:32 Polyethylene Glycol 3350 17 Gm Powd.Pack PO Not Given DAILY YUNIEL Intake and Output 09/07/24 09/08/24 09/08/24 22:59 06:59 14:59 Other: # Voids 1 2 # Bowel Movements 1 09/08/24 06:17 09/08/24 06:17
[2024-09-08] MEDS: MAGNESIUM SULFATE-WATER PMX 20 GM in WATER FOR INJECTION 1 500ML.BAG IV SCH (13:44)
[2024-09-08 13:46] LABS: ALT 16 U/L (4-34); AST 24 U/L (14-36); African American GFR (CKD) >90 (>60 ml/min/1.73 sqM); Blood Urea Nitrogen 11 mg/dL (7-17); LDH 274 U/L (120-246); Magnesium 2.6 mg/dL (1.6-2.3); Non-African American GFR(CKD) >90 (>60 ml/min/1.73 sqM); Uric Acid 7.4 mg/dL (3.7-7.4)
[2024-09-08 13:54] LABS: INR 0.8 (<1.2); Partial Thromboplastin Time 22.2 sec (22.0-30.0); Prothrombin Time 9.5 sec (10.0-12.5)
[2024-09-08 15:05] LABS: Appearance,Urine Cloudy (Clear); Bacteria,Urine Few /hpf; Bilirubin,Urine Negative (Negative); Blood,Urine Small (Negative); Color,Urine Colorless; Glucose,Urine (UA) Negative (Negative); Ketones,Urine Negative (Negative); Leukocyte Esterase,Urine Small (Negative); Mucus,Urine Rare /hpf; Nitrite,Urine Negative (Negative); PH, Urine 6.5 (5.0-8.0); Protein,Urine 3+ (Negative); RBC,Urine 10 /hpf (0-5); Specific Gravity,Urine 1.009 (1.001-1.035); Squamous Epithelial Cell,Urine 18 /hpf (0-4); Urobilinogen,Urine <2.0 mg/dL (<2.0); WBC,Urine 30 /hpf (0-5)
--- NOTE | 2024-09-08 15:16 | P.PN ---
Subjective Progress Note Date: 09/08/24 Patient is a 23-year-old female at 31 weeks and 6 days with hypertension here for evaluation of bilateral lower extremity swelling. Patient reported that 4 days ago her legs began to swell and felt stiff and "heavy like a brick". She also reported associated tremors began yesterday and would usually last for hours when she is awake. She denied seizure history, loss of consciousness, recent trauma or loss of control of urination or defecation. She denied fever, chills, calf pain, shortness of breath, chest pain, palpitations, recent illness, abdominal pain, headaches, focal weakness, facial symmetry, changes in vision, changes in speech, nausea, vomiting, diarrhea, dysuria, hematuria, roberts es in sensation, bruising, bleeding, jaundice. Labs on evaluation showed WBC 12.1, hemoglobin 12.4, platelet count 319,000, BUN 12, creatinine 0.51, glucose 76, AST 20, ALT 16, lactic dehydrogenase 206. Urinalysis showed cloudy appearance, +3 protein, trace blood, small leukocyte esterase, 20 squamous epithelial cells, occasional bacteria, mucus rare, urine total protein greater than 600. UDS negative. Vitals on consult showed pulse rate 84, respiratory rate 14, blood pressure 131/85, O2 saturation 90% on room air 09/08/2024 patient seen and examined at bedside. No acute events overnight. Blood pressure still elevated at the 140s to 160s SBP. Labs today show WBC 13.7, hemoglobin 12.2, platelet count 3 35,000, sodium 134, potassium 4.8, chloride 108, bicarb 16, BUN 13, creatinine 0.49, glucose 74 calcium 9, magnesium 1.9, total bilirubin 0.4, AST 23, ALT 15, alk phos 112, albumin 3, TSH 3.4. Repeat urinalysis does not a clean-catch showed cloudy appearance, +3 protein, negative blood, negative nitrites, trace leukocyte Estrace, WBC 15, 8 squamous epithelial cells, urine bacteria occasional, urine creatinine 108.2, urine total protein greater than 600. Echocardiogram showed left ventricular ejection fraction estimated 45 to 50% with mild global hypokinesis, mildly impaired left ventricular systolic function, trace mitral and tricuspid regurgitation. Venous Doppler ultrasound of bilateral lower extremities are negative for DVT Review of systems: Pertinent positives and negatives as discussed in HPI, a complete review of systems was performed and all other systems are negative. Pertinent imaging and labs reviewed. Physical examination: Vital signs reviewed General: non toxic, no distress, appears at stated age Derm: no unusual rashes/lesions, cool and clammy, sweating noted Head: atraumatic, normocephalic, symmetric Eyes: EOMI, no lid lag, anicteric sclera, pupils equal round reactive to light ENT: Nose and ears atraumatic Neck: No cervical lymphadenopathy, trachea midline, supple Mouth: no lip lesion, mucus membranes moist Cardiovascular: S1S2 reg, no murmur Lungs: CTA bilateral, no rhonchi, no rales, no accessory muscle use Abdominal: soft, nondistended, nontender to palpation, no guarding, gravid abdomen noted Ext: muscle strength 5 out of 5 in all 4 extremities grossly, no gross muscle atrophy, no contractures, positive dorsalis pedis pulse, bilateral nonpitting lower extremity swelling up to the thighs Neuro: CN II-XI grossly intact, no gross focal neuro deficits, tremors of legs and arms noted, at rest Psych: Alert, oriented, appropriate affect and mood Assessment/Plan: 23-year-old female at 31 weeks and 6 days with hypertension here for evaluation of bilateral lower extremity swelling and hypertension. Found to have reduced ejection fraction on imaging. Negative for DVT #. Hypertension -SBP 1 40-1 60s -Nifedipine increased to 90 mg p.o. daily -Monitor vital signs #. New onset heart failure with reduced ejection fraction 45 to 50% likely due to dilated cardiomyopathy -Urinalysis showed cloudy appearance, +3 protein, trace blood, small leukocyte esterase, 20 squamous epithelial cells, occasional bacteria, mucus rare, urine total protein greater than 600 -Patient does have proteinuria but not a clean sample - Echocardiogram showed left ventricular ejection fraction estimated 45 to 50% with mild global hypokinesis, mildly impaired left ventricular systolic func tion, trace mitral and tricuspid regurgitation. -D-dimer 0.9, TSH 3.4 -Venous Doppler ultrasound of bilateral lower extremities are negative for DVT -Repeat clean-catch urinalysis -Cardiology consulted -Diuresis likely needed. Will defer to cardiology. -Will likely need higher level of care MFM #. Non-anion gap metabolic acidosis -Likely secondary diarrhea -Nephrology following #. 31-week intrauterine -Currently on EFM -Management per obstetrics service Carolin Caruso MD PGY-1/[employer] Dictation was produced using [employer] dictation software. please excuse any grammatical, word or spelling errors. I have seen and evaluated the patient today. Discussed with the resident and agree with the residents finding and plan as documented in the resident's note. Changes highlighted in blue font. Objective - Vital Signs Vital signs: Vital Signs Temp 96.6 F L 09/07/24 19:00 Pulse 120 H 09/07/24 21:00 Resp 20 09/07/24 21:00 BP 155/95 09/08/24 05:00 Pulse Ox 98 09/07/24 21:00 FiO2 Intake & Output 09/07/24 09/08/24 09/08/24 18:59 06:59 18:59 Other: # Voids 2 2 # Bowel Movements 1 - Labs CBC & Chem 7: 09/08/24 13:20 09/08/24 13:20 Labs: Abnormal Lab Results - Last 24 Hours (Table) 09/07/24 09/07/24 09/07/24 Range/Units 10:21 10:21 11:15 WBC (3.8-10.6) k/uL Neutrophils # (1.3-7.7) k/uL D-Dimer 0.90 H (<0.60) mg/L FEU Sodium 135 L (137-145) mmol/L Chloride (98-107) mmol/L Carbon Dioxide 19 L (22-30) mmol/L Creatinine 0.48 L (0.52-1.04) mg/dL Glucose 73 L (74-99) mg/dL Total Protein (6.3-8.2) g/dL Albumin (3.5-5.0) g/dL Urine Appearance Cloudy H (Clear) Urine Protein 3+ H (Negative) Ur Leukocyte Esterase Trace H (Negative) Urine WBC 15 H (0-5) /hpf Ur Squamous Epith Cells 8 H (0-4) /hpf Urine Bacteria Occasional H (None) /hpf Urine Mucus Few H (None) /hpf 09/08/24 09/08/24 Range/Units 06:17 06:17 WBC 13.7 H (3.8-10.6) k/uL Neutrophils # 11.2 H (1.3-7.7) k/uL D-Dimer (<0.60) mg/L FEU Sodium 134 L (137-145) mmol/L Chloride 108 H (98-107) mmol/L Carbon Dioxide 16 L (22-30) mmol/L Creatinine 0.49 L (0.52-1.04) mg/dL Glucose (74-99) mg/dL Total Protein 5.7 L (6.3-8.2) g/dL Albumin 3.0 L (3.5-5.0) g/dL Urine Appearance (Clear) Urine Protein (Negative) Ur Leukocyte Esterase (Negative) Urine WBC (0-5) /hpf Ur Squamous Epith Cells (0-4) /hpf Urine Bacteria (None) /hpf Urine Mucus (None) /hpf
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
[2024-09-08] MEDS: LABETALOL 5 MG/ML VIAL MDV IVP STA (15:21)
[2024-09-08] MEDS: BETAMET ACET-BETAMETH SOD PHOS 6 MG/ML MDV IM SCH (15:47)
[2024-09-08] MEDS: ACETAMINOPHEN TAB 325 MG TAB PO PRN (16:15)
[2024-09-08 16:36] VITALS: PULSE 106; RESP 18
[2024-09-08 17:34] VITALS: BP 143/95
[2024-09-09] MEDS ORDERED: PANTOPRAZOLE 40 MG TABLET PO SCH (07:30)
== END 2024-09-08 17:38 | disposition short-term general hospital (02) | DRG 566 ==
LOC: FBPOP 21:50 → 4FBP 09-07 00:41 → OBSVTOIN 09-07 00:41
PROVIDERS: ADMIT Obstetrics & Gynecology; ATTEND Obstetrics & Gynecology
DX: O14.93 Unspecified pre-eclampsia, third trimester (principal); O99.283 Endocrine, nutritional and metabolic diseases complicating pregnancy, third trimester; O99.343 Other mental disorders complicating pregnancy, third trimester; O99.891 Other specified diseases and conditions complicating pregnancy; O43.193 Other malformation of placenta, third trimester; O36.5930 Maternal care for other known or suspected poor fetal growth, third trimester, not applicable or unspecified; O09.33 Supervision of pregnancy with insufficient antenatal care, third trimester; O99.413 Diseases of the circulatory system complicating pregnancy, third trimester; Z3A.31 31 weeks gestation of pregnancy; E87.20 Acidosis, unspecified; I50.23 Acute on chronic systolic (congestive) heart failure; F31.9 Bipolar disorder, unspecified; E73.9 Lactose intolerance, unspecified; I42.0 Dilated cardiomyopathy; Z91.410 Personal history of adult physical and sexual abuse; Z91.51 Personal history of suicidal behavior; Z28.310 Unvaccinated for COVID-19; Z28.21 Immunization not carried out because of patient refusal; Z88.6 Allergy status to analgesic agent; Z88.0 Allergy status to penicillin
CPT/HCPCS: 36415; 59025; 76819; 80048; 80053; 80306; 81001; 82565; 82570; 83615; 83735; 84156; 84443; 84450; 84460; 84520; 84550; 85025; 85379; 85384; 85610; 85730; 93005; 93306; 93970; 96361; 96374; 96376; 99215

== ENCOUNTER 2024-09-12 22:10 | Observation (INO) | payer OTHER ==
[2024-09-12] MEDS ORDERED: LIDOCAINE 0.5% (PF) 5 MG/ML (50 ML SDV) SQ PRN (22:58)
[2024-09-12] MEDS: LABETALOL 200 MG TAB PO SCH (23:39)
[2024-09-13 00:02] LABS: ALT 26 U/L (4-34); AST 29 U/L (14-36); African American GFR (CKD) >90 (>60 ml/min/1.73 sqM); Blood Urea Nitrogen 25 mg/dL (7-17); LDH 266 U/L (120-246); Non-African American GFR(CKD) >90 (>60 ml/min/1.73 sqM); Uric Acid 9.6 mg/dL (3.7-7.4)
[2024-09-13 00:12] LABS: Basophils % (A) 0 %; Eosinophils # (A) 0.1 k/uL (0-0.7); Eosinophils % (A) 1 %; HCT 39.1 % (34.0-46.0); HGB 12.9 gm/dL (11.4-16.0); Lymphocytes # (A) 1.2 k/uL (1.0-4.8); Lymphocytes % (A) 10 %; MCH 28.4 pg (25.0-35.0); MCHC 32.9 g/dL (31.0-37.0); MCV 86.3 fL (80.0-100.0); Mean Platelet Volume 8.1; Monocytes # (A) 0.7 k/uL (0-1.0); Monocytes % (A) 6 %; Neutrophils # (A) 9.4 k/uL (1.3-7.7); Neutrophils % (A) 81 %; Platelet Count 337 k/uL (150-450); RBC 4.53 m/uL (3.80-5.40); RDW 13.6 % (11.5-15.5); WBC 11.6 k/uL (3.8-10.6)
[2024-09-13 00:19] VITALS: BP 169/117; PULSE 123; RESP 18; TEMP 97.4
[2024-09-13 00:20] LABS: Creatinine,Urine Random 158.1 mg/dL; Creatinine,Urine Random 159.1 mg/dL
[2024-09-13 00:34] LABS: Appearance,Urine Cloudy (Clear); Bacteria,Urine Rare /hpf; Bilirubin,Urine Negative (Negative); Blood,Urine Moderate (Negative); Budding Yeast,Urine Rare /hpf; Color,Urine Yellow; Glucose,Urine (UA) Negative (Negative); Granular Casts,Urine 2 /lpf (0); Hyaline Casts,Urine 92 /lpf (0-2); Ketones,Urine Negative (Negative); Leukocyte Esterase,Urine Negative (Negative); Mucus,Urine Moderate /hpf; Nitrite,Urine Negative (Negative); PH, Urine 6.5 (5.0-8.0); Protein,Urine 4+ (Negative); RBC,Urine 8 /hpf (0-5); Squamous Epithelial Cell,Urine 12 /hpf (0-4); Urobilinogen,Urine <2.0 mg/dL (<2.0); WBC,Urine 39 /hpf (0-5)
[2024-09-13 00:38] LABS: Specific Gravity,Urine 1.046 (1.001-1.035)
[2024-09-13 00:40] LABS: Total Protein,Urine Random >600 mg/dL (<12)
--- NOTE | 2024-09-13 11:40 | P.HPOB ---
History of Present Illness H&P Date: 09/13/24 Chief Complaint: swelling Ms. Zhou is a 23 year old at 32 weeks and 6 days by 22 week who presents with chief complaint of swelling. The patient has a history of chronic hypertension with new-onset superimposed pre-eclampsia with severe features for which she was transferred to [facility] on 09/07 last week and remained admitted with the plan for admission until delivery on 09/22. However, she left against medical advice on 09/12 because she was "disrespected" by a couple of nurses. She states that she asked for help walking to the bathroom and was refused help. Then when she went to the bathroom, she slipped and fell. She asked two nurses for help getting off the floor but they refused help and her boyfriend had to help her off the floor. She also states she was not adequately counseled before receiving a PICC line. The is also complicated by IUGR with efw 4% and AC 2%ile based on a growth US 09/09 with UA dopplers within normal limits. PIH labs today are within normal limits with an elevated P:C ratio of 3.7 Blood pressures since the patient was admitted for overnight observation have been labile with intermittent severe range BPs and some mild range BPs. She is on a current antihypertensive regimen of Labetalol 200mg TID, Procardia XL 120 mg daily. Past Medical History: cognitive delay, autism, chronic hypertension. Per chart review the patient also states she has a history of DVT. Past Medical History Past Medical History: No Reported History History of Any Multi-Drug Resistant Organisms: None Reported Past Surgical History: Adenoidectomy, Ear Surgery, Tonsillectomy Past Anesthesia/Blood Transfusion Reactions: No Reported Reaction Past Psychological History: No Psychological Hx Reported Smoking Status: Never smoker Past Alcohol Use History: None Reported Past Drug Use History: None Reported Medications and Allergies Home Medications Medication Instructions Recorded Confirmed Type Cholecalciferol (Vitamin D3) 1 tab PO ONCE 06/30/24 08/30/24 History [Vitamin D3 (500 Iu/5 ML)] Vit No.179/Iron/Folic 1 tab PO ONCE 06/30/24 08/30/24 History [ Tablet] Allergies Allergy/AdvReac Type Severity Reaction Status Date / Time amoxicillin AdvReac Rapid Verified 09/12/24 22:15 Heart Rate ibuprofen [From Motrin] AdvReac Rapid Verified 09/12/24 22:15 Heart Rate Penicillins AdvReac Rapid Verified 09/12/24 22:15 Heart Rate Exam Vital Signs Temp Pulse Resp BP Pulse Ox 09/12/24 23:31 97.4 F L 123 H 18 169/117 99 09/12/24 22:14 97.4 F L 122 H 18 169/117 99 Intake and Output 09/12/24 09/13/24 09/13/24 22:59 06:59 14:59 Other: # Voids 1 Weight 80.286 kg 80.286 kg Focused physical exam is performed. This is a healthy-appearing in no apparent distress. Breathing is non-labored. Abdomen is gravid and non-tender. Extremities with +2 to +3 pitting edema. heart tones are reactive and reassuring on NST. Results Result Diagrams: 09/12/24 23:34 09/12/24 23:34 Abnormal Lab Results - Last 24 Hours (Table) 09/12/24 09/12/24 09/12/24 Range/Units 23:34 23:34 23:59 WBC 11.6 H (3.8-10.6) k/uL Neutrophils # 9.4 H (1.3-7.7) k/uL BUN 25 H (7-17) mg/dL Uric Acid 9.6 H (3.7-7.4) mg/dL Lactate Dehydrogenase 266 H (120-246) U/L Urine Appearance (Clear) Ur Specific Purdy (1.001-1.035) Urine Protein (Negative) Urine Blood (Negative) Urine RBC (0-5) /hpf Urine WBC (0-5) /hpf Ur Squamous Epith Cells (0-4) /hpf Urine Bacteria (None) /hpf Hyaline Casts (0-2) /lpf Urine Mucus (None) /hpf Urine Yeast (Budding) (None) /hpf U Random Total Protein >600 H (<12) mg/dL 09/12/24 Range/Units 23:59 WBC (3.8-10.6) k/uL Neutrophils # (1.3-7.7) k/uL BUN (7-17) mg/dL Uric Acid (3.7-7.4) mg/dL Lactate Dehydrogenase (120-246) U/L Urine Appearance Cloudy H (Clear) Ur Specific Purdy 1.046 H (1.001-1.035) Urine Protein 4+ H (Negative) Urine Blood Moderate H (Negative) Urine RBC 8 H (0-5) /hpf Urine WBC 39 H (0-5) /hpf Ur Squamous Epith Cells 12 H (0-4) /hpf Urine Bacteria Rare H (None) /hpf Hyaline Casts 92 H (0-2) /lpf Urine Mucus Moderate H (None) /hpf Urine Yeast (Budding) Rare H (None) /hpf U Random Total Protein (<12) mg/dL Assessment and Plan Assessment: 23 year old at 32 weeks and 6 days (by 22 week US) presents with chief complaint of swelling in the context of newly diagnosed cHTN with superimposed preE, IUGR fetus Plan: Dr. Alfonso at [facility] has accepted this transfer for inpatient admission until delivery, likely 09/22 if not sooner.
== END 2024-09-13 12:24 ==
LOC: FBPOP 22:10 → 4FBP 23:16
PROVIDERS: ADMIT Obstetrics & Gynecology; ATTEND Obstetrics & Gynecology
DX: O11.3 Pre-existing hypertension with pre-eclampsia, third trimester (principal); O10.913 Unspecified pre-existing hypertension complicating pregnancy, third trimester; O36.5930 Maternal care for other known or suspected poor fetal growth, third trimester, not applicable or unspecified; Z3A.32 32 weeks gestation of pregnancy; Z86.718 Personal history of other venous thrombosis and embolism; Z88.0 Allergy status to penicillin; Z88.6 Allergy status to analgesic agent
CPT/HCPCS: 59025; 36415; 86900; 86901; 82570; 84156; 82565; 83615; 84450; 84460; 84520; 84550; 85025; 86850; 81001; G0378 ×2; G0463; 99215

== ENCOUNTER 2024-09-30 18:26 | Outpatient (CLI) | payer OTHER ==
[2024-09-30 19:09] VITALS: RESP 20
[2024-09-30 19:17] VITALS: BP 174/100; PULSE 95; TEMP 98.5
--- NOTE | 2024-09-30 19:18 | P.HPOB ---
History of Present Illness H&P Date: 09/30/24 Chief Complaint: hypertension, cardiomyopathy This is a 24-year-old 2 para 0101 status post primary approximately 8 days ago. Patient's care was complicated by diagnosis of chronic hypertension and IUGR. She was transferred to [facility] for new onset superimposed preeclampsia with severe features, and cardiomyopathy. (Patient had an echo prior to transfer revealing an ejection fraction of 45 percentile diagnosis of cardiomyopathy per cardiology.) Patient states she was discharged on labetalol. Patient states she did take her dose at 1230 but is unsure of the dose. Patient states she took 4 pills. Patient states she was previously on Procardia, but is not currently taking that medication since discharge. Past medical history Cognitive delay Autism Chronic hypertension Past surgical history adenoidectomy ear surgery tonsillectomy recent section 8 days ago Review of Systems Constitutional: Denies chills, Denies fatigue, Denies fever Ears, nose, mouth and throat: Denies headache Cardiovascular: Reports leg edema Respiratory: Denies dyspnea Genitourinary: Denies Past Medical History Past Medical History: No Reported History History of Any Multi-Drug Resistant Organisms: None Reported Past Surgical History: Adenoidectomy, Ear Surgery, Tonsillectomy Past Anesthesia/Blood Transfusion Reactions: No Reported Reaction Past Psychological History: No Psychological Hx Reported Smoking Status: Never smoker Past Alcohol Use History: None Reported Past Drug Use History: None Reported Medications and Allergies Home Medications Medication Instructions Recorded Confirmed Type Cholecalciferol (Vitamin D3) 1 tab PO ONCE 06/30/24 08/30/24 History [Vitamin D3 (500 Iu/5 ML)] Vit No.179/Iron/Folic 1 tab PO ONCE 06/30/24 08/30/24 History [ Tablet] Allergies Allergy/AdvReac Type Severity Reaction Status Date / Time amoxicillin AdvReac Rapid Verified 09/30/24 18:48 Heart Rate ibuprofen [From Motrin] AdvReac Rapid Verified 09/30/24 18:48 Heart Rate Penicillins AdvReac Rapid Verified 09/30/24 18:48 Heart Rate Exam Osteopathic Statement: *. No significant issues noted on an osteopathic structural exam other than those noted in the History and Physical/Consult. Intake and Output 09/30/24 09/30/24 09/30/24 06:59 14:59 22:59 Other: Weight 80.467 kg Targeted physical exam is performed on this date, in general this is a well- appearing female, breathing appears non-labored, abdomen is in appearance uterus gravid below umbilicus Pitting edema is appreciated up to her knees Assessment and Plan (1) Chronic hypertension Current Visit: Yes Status: Acute Code(s): I10 - ESSENTIAL (PRIMARY) HYPERTENSION SNOMED Code(s): 20469300 (2) Cardiomyopathy Current Visit: Yes Status: Acute Code(s): I42.9 - CARDIOMYOPATHY, UNSPECIFIED SNOMED Code(s): 13217109 Plan: Plan preeclampsia labs to rule out preeclampsia, consult to internal medicine and cardiology Given her prior diagnosis of cardiomyopathy concerns this patient should be on a telemetry floor and managed with internal medicine and cardiology on consult.
[2024-09-30] MEDS: LABETALOL 200 MG TAB PO STA (19:48)
[2024-09-30 19:59] LABS: Basophils # (A) 0.1 k/uL (0-0.2); Basophils % (A) 0 %; Eosinophils # (A) 0.3 k/uL (0-0.7); Eosinophils % (A) 3 %; HCT 31.3 % (34.0-46.0); Hypochromasia Slight; Lymphocytes # (A) 1.5 k/uL (1.0-4.8); Lymphocytes % (A) 11 %; MCH 28.3 pg (25.0-35.0); MCHC 31.7 g/dL (31.0-37.0); MCV 89.2 fL (80.0-100.0); Mean Platelet Volume 6.6; Monocytes # (A) 0.5 k/uL (0-1.0); Monocytes % (A) 4 %; Neutrophils # (A) 10.7 k/uL (1.3-7.7); Neutrophils % (A) 80 %; Platelet Count 423 k/uL (150-450); RBC 3.51 m/uL (3.80-5.40); RDW 14.7 % (11.5-15.5); WBC 13.3 k/uL (3.8-10.6)
[2024-09-30 20:09] LABS: HGB 9.9 gm/dL (11.4-16.0)
[2024-09-30 20:22] LABS: ALT 34 U/L (4-34); AST 29 U/L (14-36); African American GFR (CKD) >90 (>60 ml/min/1.73 sqM); Blood Urea Nitrogen 10 mg/dL (7-17); LDH 240 U/L (120-246); Non-African American GFR(CKD) >90 (>60 ml/min/1.73 sqM); Uric Acid 6.8 mg/dL (3.7-7.4)
[2024-09-30] MEDS ORDERED: NIFEdipine XL 30 MG TAB.ER.24 PO ONE (22:00)
[2024-09-30] MEDS ORDERED: ACETAMINOPHEN TAB 325 MG TAB PO PRN (22:59)
[2024-09-30] MEDS ORDERED: MELATONIN 5 MG TABLET PO PRN (23:17)
--- NOTE | 2024-09-30 23:24 | P.CONS ---
History of Present Illness - Reason for Consult Consult date: 09/30/24 - History of Present Illness Patient is a 24-year-old -1-0-1 s/p primary 8 days ago. Her care was complicated with with a diagnosis of chronic hypertension and IUGR. She was transferred to [facility] for superimposed preeclampsia with severe features and cardiomyopathy. Echocardiogram was done at [facility] showing ejection fraction of 45% and was diagnosed with cardiomyopathy by cardiology. She states that she was discharged with labetalol, but does not remember the dosage. During interview patient states she was seeing her PCP and had elevated blood pressure when checked. She was advised to go to the ED. She denies any headache, vision changes, chest pain, shortness of breath, abdominal pain, urinary symptoms. She endorses bilateral leg swelling that she has had since her eighth month of . Pertinent positives and negatives as discussed above, a complete review of systems was performed and all other systems are negative. Vitals: Signs Reviewed Physical Exam: General: nontoxic, no distress, appears at stated age Derm: warm, dry, intact Head: atraumatic, normocephalic, symmetric Eyes: EOMI, anicteric sclera Mouth: no lip lesion, mucus membranes moist Cardiovascular: S1 S2 reg, no murmur, rubs, or gallops Lungs: CTA bilateral, no rhonchi, no rales, no accessory muscle use Abdominal: soft, non-tender to palpataion, no appreciable organomegaly Extremities: no gross muscle atrophy, 3+ bilateral lower extremity pitting edema from ankle to proximal ackerman Neuro: Alert, Oriented, CNII-XII grossly intact, gait normal Psych: well appearing, appropriate affect Data Received Today: Pertinent Labs: WBC 13.3, Hgb 9.9, MCV 89.2, BUN 10, creatinine 0.45, LDH 240 Imaging: EKG and chest x-ray pending Assessment and Plan: Patient is a 24-year-old -1-0-1 s/p primary 8 days ago. Her care was complicated with with a diagnosis of chronic hypertension. #. hypertension #. cardiomyopathy Continue with labetalol 200 mg BID IV Lasix 40 mg q12hr Daily weights, intake/output, monitor electrolytes and renal function Fluid restriction of 1500 mL Heart healthy diet Cardiac telemetry Cardiology consulted #. Acute blood loss anemia Likely secondary to Denies any signs of active bleeding Continue to monitor CBC #. Leukocytosis Likely reactive in setting of acute stress Patient afebrile and showing no signs/symptoms of infection Follow-up a.m. CBC DVT ppx: Lovenox 40 SQ Code status: Full code Thank you for this consultation. We will continue to follow throughout duration of hospital course. Please do not hesitate to ask any further questions. Adela Roberto MD PGY-1 IM Dictation was produced using [employer] dictation software. please excuse any grammatical, word or spelling errors. Past Medical History Past Medical History: No Reported History History of Any Multi-Drug Resistant Organisms: None Reported Past Surgical History: Adenoidectomy, Ear Surgery, Tonsillectomy Past Anesthesia/Blood Transfusion Reactions: No Reported Reaction Past Psychological History: No Psychological Hx Reported Smoking Status: Never smoker Past Alcohol Use History: None Reported Past Drug Use History: None Reported Medications and Allergies Home Medications Medication Instructions Recorded Confirmed Type Cholecalciferol (Vitamin D3) 1 tab PO ONCE 06/30/24 08/30/24 History [Vitamin D3 (500 Iu/5 ML)] Vit No.179/Iron/Folic 1 tab PO ONCE 06/30/24 08/30/24 History [ Tablet] Allergies Allergy/AdvReac Type Severity Reaction Status Date / Time amoxicillin AdvReac Rapid Verified 09/30/24 18:48 Heart Rate ibuprofen [From Motrin] AdvReac Rapid Verified 09/30/24 18:48 Heart Rate Penicillins AdvReac Rapid Verified 09/30/24 18:48 Heart Rate Physical Exam Vitals: Vital Signs Temp Pulse Resp BP Pulse Ox 09/30/24 19:03 20 09/30/24 18:42 98.5 F 95 20 174/100 98 Intake and Output 09/30/24 09/30/24 09/30/24 06:59 14:59 22:59 Other: Voiding Method Toilet Weight 80.467 kg Results CBC & Chem 7: 09/30/24 19:50 09/30/24 19:50 Labs: Abnormal Lab Results - Last 24 Hours (Table) 09/30/24 09/30/24 Range/Units 19:50 19:50 WBC 13.3 H (3.8-10.6) k/uL RBC 3.51 L (3.80-5.40) m/uL Hgb 9.9 L D (11.4-16.0) gm/dL Hct 31.3 L (34.0-46.0) % Neutrophils # 10.7 H (1.3-7.7) k/uL Creatinine 0.45 L (0.52-1.04) mg/dL
--- NOTE | 2024-10-01 02:00 | XR ---
EXAM: XR Chest, 1 View CLINICAL HISTORY: ITS.REASON XR Reason: cardiomyopathy TECHNIQUE: Frontal view of the chest. COMPARISON: No relevant prior studies available. FINDINGS: Lungs: No consolidation or mass. Pleural space: No acute findings. Heart: cardiomegaly. Bones/joints: No acute findings. IMPRESSION: Cardiomegaly
[2024-10-01] MEDS ORDERED: LABETALOL 200 MG TAB PO SCH ×2 (09:00)
[2024-10-01] MEDS ORDERED: ENOXAPARIN 40 MG/0.4 ML SYRINGE SQ SCH (09:00)
== END 2024-09-30 22:03 ==
LOC: FBPOP 18:26
PROVIDERS: ATTEND Obstetrics & Gynecology Obstetrics
DX: I10 Essential (primary) hypertension (principal); I42.9 Cardiomyopathy, unspecified; I51.7 Cardiomegaly; Z88.6 Allergy status to analgesic agent; Z88.0 Allergy status to penicillin; Z88.1 Allergy status to other antibiotic agents
CPT/HCPCS: 82565; 83615; 84450; 84460; 84520; 84550; 85025; 71045; G0463; 99215

== ENCOUNTER 2024-09-30 21:06 | Inpatient (IN) | payer OTHER ==
[2024-09-30] MEDS ORDERED: MELATONIN 5 MG TABLET PO PRN (23:32)
--- NOTE | 2024-09-30 23:43 | P.HPIM ---
History of Present Illness H&P Date: 09/30/24 Patient is a 24-year-old female -1-0-1 s/p primary 8 days ago. Her care was complicated with with a diagnosis of chronic hypertension and IUGR. She was transferred to [facility] for superimposed preeclampsia with severe features and cardiomyopathy. Echocardiogram was done at [facility] showing ejection fraction of 45% and was diagnosed with cardiomyopathy by cardiology. She states that she was discharged with labetalol, but does not remember the dosage. During interview patient states she was seeing her PCP and had elevated blood pressure when checked. She was advised to go to the ED. She denies any headache, vision changes, chest pain, shortness of breath, abdominal pain, urinary symptoms. She endorses bilateral leg swelling that she has had since her eighth month of . Pertinent Labs: WBC 13.3, Hgb 9.9, MCV 89.2, BUN 10, creatinine 0.45, LDH 240 Imaging: EKG and chest x-ray pending Pertinent positives and negatives as discussed above, a complete review of systems was performed and all other systems are negative. Vitals: Signs Reviewed Physical Exam: General: nontoxic, no distress, appears at stated age Derm: warm, dry, intact Head: atraumatic, normocephalic, symmetric Eyes: EOMI, anicteric sclera Mouth: no lip lesion, mucus membranes moist Cardiovascular: S1 S2 reg, no murmur, rubs, or gallops Lungs: CTA bilateral, no rhonchi, no rales, no accessory muscle use Abdominal: soft, diffusley tender to palpataion, surgical wound from clean and intact, no purulent drainage Extremities: no gross muscle atrophy, 3+ bilateral lower extremity pitting edema from ankle to proximal ackerman Neuro: Alert, Oriented, CNII-XII grossly intact, gait normal Psych: well appearing, appropriate affect Assessment and Plan: Patient is a 24-year-old -1-0-1 s/p primary 8 days ago. Her care was complicated with with a diagnosis of chronic hypertension. #. hypertension, chronic #. cardiomyopathy Continue with labetalol 200 mg PO BID Daily weights, intake/output, monitor electrolytes and renal function Fluid restriction of 1500 mL Heart healthy diet Cardiac telemetry Cardiology consulted #. Postoperative anemia, likely due to bleeding Likely secondary to Denies any signs of active bleeding Continue to monitor CBC #. Leukocytosis Likely reactive in setting of acute stress Patient afebrile and showing no signs/symptoms of infection surgical wound from clean and intact, no purulent drainage Follow-up a.m. CBC DVT ppx: IPCDs Code status: Full code Adela Roberto MD PGY-1 IM Dictation was produced using [employer] dictation software. please excuse any grammatical, word or spelling errors. Past Medical History Past Medical History: Hypertension Additional Past Medical History / Comment(s): preclampsia History of Any Multi-Drug Resistant Organisms: None Reported Past Surgical History: Adenoidectomy, Section, Ear Surgery, Tonsillectomy Past Anesthesia/Blood Transfusion Reactions: No Reported Reaction Past Psychological History: No Psychological Hx Reported Smoking Status: Never smoker Past Alcohol Use History: None Reported Past Drug Use History: None Reported Medications and Allergies Home Medications Medication Instructions Recorded Confirmed Type Cholecalciferol (Vitamin D3) 1 tab PO ONCE 06/30/24 08/30/24 History [Vitamin D3 (500 Iu/5 ML)] Vit No.179/Iron/Folic 1 tab PO ONCE 06/30/24 08/30/24 History [ Tablet] Allergies Allergy/AdvReac Type Severity Reaction Status Date / Time amoxicillin AdvReac Rapid Verified 09/30/24 18:48 Heart Rate ibuprofen [From Motrin] AdvReac Rapid Verified 09/30/24 18:48 Heart Rate Penicillins AdvReac Rapid Verified 09/30/24 18:48 Heart Rate Physical Exam Vitals: Vital Signs Temp Pulse Resp BP BP Pulse Ox 09/30/24 21:57 98.8 F 91 14 147/97 149/107 98 Intake and Output 09/30/24 09/30/24 10/01/24 14:59 22:59 06:59 Other: Weight 80.6 kg Results CBC & Chem 7: 09/30/24 23:49 Thrombosis Risk Factor Assmnt - Choose All That Apply Any of the Below Risk Factors Present?: No Other Risk Factors: No Other congenital or acquired thrombophilia - If yes, enter type in comment: No Thrombosis Risk Factor Assessment Level: Very Low Risk
[2024-10-01 00:28] LABS: Basophils # (A) 0.1 k/uL (0-0.2); Basophils % (A) 1 %; Eosinophils # (A) 0.3 k/uL (0-0.7); Eosinophils % (A) 3 %; HCT 31.9 % (34.0-46.0); HGB 10.3 gm/dL (11.4-16.0); Lymphocytes # (A) 1.6 k/uL (1.0-4.8); Lymphocytes % (A) 13 %; MCH 28.3 pg (25.0-35.0); MCHC 32.4 g/dL (31.0-37.0); MCV 87.4 fL (80.0-100.0); Monocytes # (A) 0.4 k/uL (0-1.0); Monocytes % (A) 3 %; Neutrophils # (A) 9.8 k/uL (1.3-7.7); Neutrophils % (A) 80 %; Platelet Count 435 k/uL (150-450); RBC 3.65 m/uL (3.80-5.40); RDW 14.5 % (11.5-15.5); WBC 12.3 k/uL (3.8-10.6)
[2024-10-01 00:45] LABS: ALT 34 U/L (4-34); AST 29 U/L (14-36); African American GFR (CKD) >90 (>60 ml/min/1.73 sqM); Albumin 2.7 g/dL (3.5-5.0); Alkaline Phosphatase 105 U/L (38-126); Anion Gap 6 mmol/L; Blood Urea Nitrogen 9 mg/dL (7-17); Carbon Dioxide 24 mmol/L (22-30); Chloride 106 mmol/L (98-107); Glucose 102 mg/dL (74-99); Magnesium 1.8 mg/dL (1.6-2.3); Non-African American GFR(CKD) >90 (>60 ml/min/1.73 sqM); Sodium 136 mmol/L (137-145); Total Bilirubin 0.4 mg/dL (0.2-1.3); Total Protein 5.5 g/dL (6.3-8.2)
[2024-10-01 00:52] LABS: NT-Pro-B-Type Natriuretic Pept 1370 pg/mL
[2024-10-01 00:58] LABS: Prothrombin Time 10.6 sec (10.0-12.5)
[2024-10-01] MEDS: ACETAMINOPHEN TAB 325 MG TAB PO PRN (03:36)
--- NOTE | 2024-10-01 08:39 | P.CRDCN ---
History of Present Illness Consult date: 10/01/24 History of present illness: The patient is a 24-year-old female patient with history of preeclampsia who delivered the baby about a week ago as well as cardiomyopathy with EF around 45% as well as hypertension. She was seen yesterday by her primary care physician for a follow-up after giving about a week ago. She was found to have elevated blood pressure consistent with hypertension crisis. The main symptoms where bilateral lower extremities edema appears to be extremely severe with no other cardiovascular symptoms of any pain in the chest or shortness of breath or dizziness or lightheadedness or any feeling of heart racing or fluttering or presyncope or syncope. She was sent to the hospital immediately. She is supposed to be on labetalol and Procardia but she has not been taking the Procardia. She stated that she has been taking the labetalol. She was admitted to the hospital and started on labetalol only. The pressure remains elevated but now consistent with stage II hypertension and she also continues to be slightly tachycardic. She underwent further workup including blood work came in to be unremarkable. The EKG was ordered and still pending. No UA was performed. The physical examination is remarkable for severe bilateral lower extremities pitting edema noted otherwise rest of the examination is unremarkable besides soft systolic murmur at the right upper sternal border Assessment History of preeclampsia Cardiomyopathy with EF around 45% Hypertension crisis Heart failure Noncompliance Plan Start the patient on oral diuretics because she does not want any IV diuretics Increase the dose of labetalol Consider adding calcium channel juarez if the pressure remains elevated Obtain UA Monitor the kidney function and electrolytes Follow-up with the patient Past Medical History Past Medical History: Hypertension Additional Past Medical History / Comment(s): preclampsia History of Any Multi-Drug Resistant Organisms: None Reported Past Surgical History: Adenoidectomy, Section, Ear Surgery, Tonsill ectomy Past Anesthesia/Blood Transfusion Reactions: No Reported Reaction Past Psychological History: No Psychological Hx Reported Smoking Status: Never smoker Past Alcohol Use History: None Reported Past Drug Use History: None Reported Medications and Allergies Home Medications Medication Instructions Recorded Confirmed Type Cholecalciferol (Vitamin D3) 1 tab PO ONCE 06/30/24 08/30/24 History [Vitamin D3 (500 Iu/5 ML)] Vit No.179/Iron/Folic 1 tab PO ONCE 06/30/24 08/30/24 History [ Tablet] Allergies Allergy/AdvReac Type Severity Reaction Status Date / Time amoxicillin AdvReac Rapid Verified 09/30/24 18:48 Heart Rate ibuprofen [From Motrin] AdvReac Rapid Verified 09/30/24 18:48 Heart Rate Penicillins AdvReac Rapid Verified 09/30/24 18:48 Heart Rate Physical Exam Vitals: Vital Signs Temp Pulse Resp BP BP Pulse Ox 10/01/24 08:10 98.7 F 98 16 150/89 98 10/01/24 04:10 95 14 140/95 94 L 10/01/24 00:00 95 14 132/88 97 09/30/24 21:57 98.8 F 91 14 147/97 149/107 98 Intake and Output 09/30/24 10/01/24 10/01/24 22:59 06:59 14:59 Other: # Voids 3 Weight 80.6 kg 76.8 kg Results 09/30/24 23:49 09/30/24 23:49 Cardiac Enzymes 09/30/24 09/30/24 Range/Units 23:49 23:49 AST 29 (14-36) U/L Troponin I <0.012 (0.000-0.034) ng/mL Coagulation 09/30/24 Range/Units 23:49 PT 10.6 (10.0-12.5) sec APTT 22.0 (22.0-30.0) sec CBC 09/30/24 Range/Units 23:49 WBC 12.3 H (3.8-10.6) k/uL RBC 3.65 L (3.80-5.40) m/uL Hgb 10.3 L (11.4-16.0) gm/dL Hct 31.9 L (34.0-46.0) % Plt Count 435 (150-450) k/uL Comprehensive Metabolic Panel 09/30/24 Range/Units 23:49 Sodium 136 L (137-145) mmol/L Potassium 4.0 (3.5-5.1) mmol/L Chloride 106 (98-107) mmol/L Carbon Dioxide 24 (22-30) mmol/L BUN 9 (7-17) mg/dL Creatinine 0.44 L (0.52-1.04) mg/dL Glucose 102 H (74-99) mg/dL Calcium 9.0 (8.4-10.2) mg/dL AST 29 (14-36) U/L ALT 34 (4-34) U/L Alkaline Phosphatase 105 (38-126) U/L Total Protein 5.5 L (6.3-8.2) g/dL Albumin 2.7 L (3.5-5.0) g/dL Current Medications Generic Name Dose Route Start Last Admin Trade Name Freq PRN Reason Stop Dose Admin Acetaminophen 650 mg 09/30/24 23:31 10/01/24 03:36 Acetaminophen Tab 325 Mg Tab PO 650 mg Q6HR PRN Administration Fever and/ or Pain Labetalol HCl 200 mg 10/01/24 09:00 Labetalol 200 Mg Tab PO BID YUNIEL Melatonin 5 mg 09/30/24 23:32 Melatonin 5 Mg Tablet PO HS PRN Insomnia Intake and Output 09/30/24 10/01/24 10/01/24 22:59 06:59 14:59 Other: # Voids 3 Weight 80.6 kg 76.8 kg 09/30/24 23:49 09/30/24 23:49
[2024-10-01] MEDS ORDERED: LABETALOL 200 MG TAB PO SCH (09:00)
[2024-10-01] MEDS ORDERED: ENOXAPARIN 40 MG/0.4 ML SYRINGE SQ SCH (09:00)
[2024-10-01] MEDS: FUROSEMIDE 40 MG TAB PO SCH (09:12)
[2024-10-01] MEDS: LABETALOL 100 MG TAB PO SCH (09:13)
[2024-10-01 09:43] LABS: African American GFR (CKD) >90 (>60 ml/min/1.73 sqM); Anion Gap 3 mmol/L; Blood Urea Nitrogen 10 mg/dL (7-17); Calcium 8.8 mg/dL (8.4-10.2); Carbon Dioxide 26 mmol/L (22-30); Chloride 106 mmol/L (98-107); Glucose 98 mg/dL (74-99); Non-African American GFR(CKD) >90 (>60 ml/min/1.73 sqM); Potassium 4.5 mmol/L (3.5-5.1); Sodium 135 mmol/L (137-145)
[2024-10-01 09:48] LABS: Basophils # (A) 0.1 k/uL (0-0.2); Basophils % (A) 1 %; Eosinophils # (A) 0.3 k/uL (0-0.7); Eosinophils % (A) 3 %; HGB 9.3 gm/dL (11.4-16.0); Lymphocytes # (A) 1.3 k/uL (1.0-4.8); Lymphocytes % (A) 13 %; MCH 27.7 pg (25.0-35.0); MCV 86.7 fL (80.0-100.0); Mean Platelet Volume 7.3; Monocytes # (A) 0.4 k/uL (0-1.0); Monocytes % (A) 4 %; Neutrophils # (A) 7.5 k/uL (1.3-7.7); Neutrophils % (A) 78 %; Platelet Count 410 k/uL (150-450); RBC 3.34 m/uL (3.80-5.40); RDW 14.7 % (11.5-15.5); WBC 9.7 k/uL (3.8-10.6)
--- NOTE | 2024-10-01 10:33 | US ---
EXAMINATION TYPE: US venous doppler duplex LE BI DATE OF EXAM: 10/01/2024 9:26 AM Exam done portable COMPARISON: US 2024 CLINICAL INDICATION: Female, 24 years old with history of swelling, preeclamspia; , Pain TECHNIQUE: The lower extremity deep venous system is examined utilizing real time linear array sonog argenis with graded compression, color doppler sonography, and spectral doppler. SIDE PERFORMED: Bilateral FINDINGS: VESSELS IMAGED: Common Femoral Vein Deep Femoral Vein Greater Saphenous Vein * Femoral Vein Popliteal Vein Small Saphenous Vein * Proximal Calf Veins (* superficial vessels) Right Leg: Appears negative for DVT Left Leg: Appears negative for DVT IMPRESSION: No ultrasound evidence for deep venous thrombosis. [facility], , 10/01/2024 10:31 AM
[2024-10-01 11:03] LABS: Appearance,Urine Clear (Clear); Bilirubin,Urine Negative (Negative); Blood,Urine Trace (Negative); Color,Urine Colorless; Glucose,Urine (UA) Negative (Negative); Ketones,Urine Negative (Negative); Leukocyte Esterase,Urine Negative (Negative); Mucus,Urine Rare /hpf; Nitrite,Urine Negative (Negative); PH, Urine 7.5 (5.0-8.0); Protein,Urine 2+ (Negative); RBC,Urine 1 /hpf (0-5); Specific Gravity,Urine 1.008 (1.001-1.035); Squamous Epithelial Cell,Urine <1 /hpf (0-4); Urobilinogen,Urine <2.0 mg/dL (<2.0); WBC,Urine 4 /hpf (0-5)
--- NOTE | 2024-10-01 12:10 | P.PN ---
Subjective Progress Note Date: 10/01/24 24-year-old female -1-0-1 s/p primary 8 days ago. Her care was complicated with with a diagnosis of chronic hypertension and IUGR. She was transferred to [facility] for superimposed preeclampsia with severe features and cardiomyopathy. Echocardiogram was done at [facility] showing ejection fraction of 45% and was diagnosed with cardiomyopathy by cardiology. She states that she was discharged with labetalol, but does not remember the dosage. During interview patient states she was seeing her PCP and had elevated blood pressure when checked. She was advised to go to the ED. She denies any headache, vision changes, chest pain, shortness of breath, abdominal pain, urinary symptoms. She endorses bilateral leg swelling that she has had since her eighth month of . 10/01 - Patient seen and examined at bedside this morning. She had no acute events overnight, and states that she has no acute complaints at this time. She continues to have lower extremity edema, and states that this was not present since the seventh month of . Throughout that time it has not improved at any point. She denies any chest pain, shortness of breath, headache, vision changes. REVIEW OF SYSTEMS: Pertinent positives and negatives noted in HPI. Physical Exam: General: nontoxic, no distress, appears at stated age Derm: warm, dry, intact Head: atraumatic, normocephalic, symmetric Eyes: EOMI, anicteric sclera Mouth: no lip lesion, mucus membranes moist Cardiovascular: S1 S2 reg, no murmur, rubs, or gallops Lungs: CTA bilateral, no rhonchi, no rales, no accessory muscle use Abdominal: soft, diffusley tender to palpataion, surgical wound from clean and intact, no purulent drainage Extremities: no gross muscle atrophy, 3+ bilateral lower extremity pitting edema from ankle to proximal ackerman Neuro: Alert, Oriented, CNII-XII grossly intact, gait normal Psych: well appearing, appropriate affect Data Received Today: Labs: She refused blood draws Imagining: Bilateral lower extremity venous Doppler ultrasound negative for DVT Assessment and plan Patient is a 24-year-old -1-0-1 s/p primary 8 days ago. Her care was complicated with with a diagnosis of chronic hypertension. 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 twice daily; discussed the possible risks of diuretic while patient is breast-feeding, she verbalized understanding -Bilateral lower extremity venous duplex ultrasound negative for DVT -Daily weights, intake/output, monitor electrolytes and renal function -Fluid restriction of 1500 mL -Heart healthy diet -Cardiac telemetry -Discussed with cardiology, continue diuresis and blood pressure control #Postoperative anemia, likely due to bleeding -Likely secondary to -Denies any signs of active bleeding -Continue to monitor CBC #Leukocytosis, likely reactive in setting of acute stress -Patient afebrile and showing no signs/symptoms of infection -surgical wound from clean and intact, no purulent drainage -Follow-up a.m. CBC DVT ppx: IPCDs Code status: Full code F: None E: Replete as needed N: Heart healthy diet with fluid restriction of 1500 cc A: Ambulatory Anticipated discharge place: Pending clinical course Anticipated discharge time: Pending clinical course Dictation was produced using [employer] dictation software. please excuse any grammatical, word or spelling errors. Brandt Kay MD PGY-1 IM I have seen and evaluated the patient today. Discussed with the resident and agree with the residents finding and plan as documented in the resident's note. Changes highlighted in blue font. Objective - Vital Signs Vital signs: Vital Signs Temp 98.8 F 09/30/24 21:57 Pulse 95 10/01/24 04:10 Resp 14 10/01/24 04:10 BP 140/95 10/01/24 04:10 Pulse Ox 94 L 10/01/24 04:10 FiO2 Intake & Output 09/30/24 10/01/24 10/01/24 18:59 06:59 18:59 Weight 76.8 kg Other: # Voids 3 - Labs CBC & Chem 7: 10/01/24 09:11 10/01/24 09:11 Labs: Abnormal Lab Results - Last 24 Hours (Table) 09/30/24 09/30/24 Range/Units 23:49 23:49 WBC 12.3 H (3.8-10.6) k/uL RBC 3.65 L (3.80-5.40) m/uL Hgb 10.3 L (11.4-16.0) gm/dL Hct 31.9 L (34.0-46.0) % Neutrophils # 9.8 H (1.3-7.7) k/uL Sodium 136 L (137-145) mmol/L Creatinine 0.44 L (0.52-1.04) mg/dL Glucose 102 H (74-99) mg/dL Total Protein 5.5 L (6.3-8.2) g/dL Albumin 2.7 L (3.5-5.0) g/dL
--- NOTE | 2024-10-02 07:35 | P.PN ---
Subjective Progress Note Date: 10/02/24 The patient is a 24-year-old female patient with history of preeclampsia who delivered the baby about a week ago as well as cardiomyopathy with EF around 45% as well as hypertension. She was seen yesterday by her primary care physician for a follow-up after giving about a week ago. She was found to have elevated blood pressure consistent with hypertension crisis. The main symptoms where bilateral lower extremities edema appears to be extremely severe with no other cardiovascular symptoms of any pain in the chest or shortness of breath or dizziness or lightheadedness or any feeling of heart racing or fluttering or presyncope or syncope. She was sent to the hospital immediately. She is trevino pposed to be on labetalol and Procardia but she has not been taking the Procardia. She stated that she has been taking the labetalol. She was admitted to the hospital and started on labetalol only. The pressure remains elevated but now consistent with stage II hypertension and she also continues to be slightly tachycardic. She underwent further workup including blood work came in to be unremarkable. The EKG was ordered and still pending. No UA was performed. The physical examination is remarkable for severe bilateral lower extremities pitting edema noted otherwise rest of the examination is unremarkable besides soft systolic murmur at the right upper sternal border October 02, 2024 The patient was seen and evaluated this morning. She seems to be feeling slightly better with improvement in the lower extremities edema. The pressure has improved as well. The venous duplex study showed no evidence of DVT. The physical examination is remarkable for mild to moderate bilateral lower extremities edema otherwise the rest of the examination appears to be unremarkable. Assessment History of preeclampsia Cardiomyopathy with EF around 45% Hypertension crisis Heart failure Noncompliance Plan Continue the current medical regimen we will continue IV Lasix for additional 24 hours Continue monitor the kidney function and electrolytes Follow-up with the patient Objective - Vital Signs Vital signs: Vital Signs Temp 98.5 F 10/01/24 20:55 Pulse 81 10/02/24 04:00 Resp 18 10/02/24 04:00 BP 145/98 10/02/24 04:00 Pulse Ox 97 10/02/24 04:00 FiO2 Intake & Output 10/01/24 10/02/24 10/02/24 18:59 06:59 18:59 Intake Total 780 Output Total 1050 Balance -270 Weight 75.1 kg Intake: Oral 780 Output: Urine 1050 Other: # Voids 1 2 - Labs CBC & Chem 7: 10/01/24 09:11 10/01/24 09:11 Labs: Abnormal Lab Results - Last 24 Hours (Table) 10/01/24 10/01/24 10/01/24 Range/Units 09:11 09:11 10:30 RBC 3.34 L (3.80-5.40) m/uL Hgb 9.3 L (11.4-16.0) gm/dL Hct 29.0 L (34.0-46.0) % Sodium 135 L (137-145) mmol/L Urine Protein 2+ H (Negative) Urine Blood Trace H (Negative) Urine Mucus Rare H (None) /hpf
--- NOTE | 2024-10-02 11:52 | P.PN ---
Subjective Progress Note Date: 10/02/24 I have seen and evaluated the patient today. Discussed with the resident and agree with the residents finding and plan as documented in the resident's note. Changes highlighted in blue font. 24-year-old female -1-0-1 s/p primary 8 days ago. Her care was complicated with with a diagnosis of chronic hypertension and IUGR. She was transferred to [facility] for superimposed preeclampsia with severe features and cardiomyopathy. Echocardiogram was done at [facility] showing ejection fraction of 45% and was diagnosed with cardiomyopathy by cardiology. She states that she was discharged with labetalol, but does not remember the dosage. During interview patient states she was seeing her PCP and had elevated blood pressure when checked. She was advised to go to the ED. She denies any headache, vision changes, chest pain, shortness of breath, abdominal pain, urinary symptoms. She endorses bilateral leg swelling that she has had since her eighth month of . 10/01 - Patient seen and examined at bedside this morning. She had no acute events overnight, and states that she has no acute complaints at this time. She continues to have lower extremity edema, and states that this was not present since the seventh month of . Throughout that time it has not improved at any point. She denies any chest pain, shortness of breath, headache, vision changes. 10/02 - Patient seen and examined at bedside this morning. No acute events overnight. States that she has no complaints at this time, denying any chest pain, shortness of breath, headache or vision changes. Noted improvement in LE edema. Will continue with blood pressure control with labetalol 3 mg twice daily as well as diuresis with Lasix 40 mg twice daily. Her blood pressure has been well-controlled since the introduction of the labetalol yesterday. REVIEW OF SYSTEMS: Pertinent positives and negatives noted in HPI. Physical Exam: General: nontoxic, no distress, appears at stated age Derm: warm, dry, intact Head: atraumatic, normocephalic, symmetric Eyes: EOMI, anicteric sclera Mouth: no lip lesion, mucus membranes moist Cardiovascular: S1 S2 reg, no murmur, rubs, or gallops Lungs: CTA bilateral, no rhonchi, no rales, no accessory muscle use Abdominal: soft, diffusley tender to palpataion, surgical wound from clean and intact, no purulent drainage Extremities: no gross muscle atrophy, 3+ bilateral lower extremity pitting edema from ankle to proximal ackerman, pedal edema Neuro: Alert, Oriented, CNII-XII grossly intact, gait normal Psych: well appearing, appropriate affect Data Received Today: Labs: She refused blood draws Imagining: Bilateral lower extremity venous Doppler ultrasound negative for DVT Assessment and plan Patient is a 24-year-old -1-0-1 s/p primary 8 days ago. Her care was complicated with with a diagnosis of chronic hypertension. 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 twice daily; discussed the possible risks of diuretic while patient is breast-feeding, she verbalized understanding -Monitor BMP; patient continues to refuse blood draws -Bilateral lower extremity venous duplex ultrasound negative for DVT -Daily weights, intake/output, monitor electrolytes and renal function -Fluid restriction of 1500 mL -Heart healthy diet -Cardiac telemetry -Discussed with cardiology, continue diuresis and blood pressure control #Postoperative anemia, likely due to bleeding -Likely secondary to -Denies any signs of active bleeding -Continue to monitor CBC #Leukocytosis, likely reactive in setting of acute stress -Patient afebrile and showing no signs/symptoms of infection -surgical wound from clean and intact, no purulent drainage -Follow-up a.m. CBC DVT ppx: IPCDs Code status: Full code F: None E: Replete as needed N: Heart healthy diet with fluid restriction of 1500 cc A: Ambulatory Anticipated discharge place: Home Anticipated discharge time: Likely tomorrow Dictation was produced using [employer] dictation software. please excuse any gr ammatical, word or spelling errors. Brandt Kay MD PGY-1 IM Objective - Vital Signs Vital signs: Vital Signs Temp 98.5 F 10/01/24 20:55 Pulse 81 10/02/24 04:00 Resp 18 10/02/24 04:00 BP 145/98 10/02/24 04:00 Pulse Ox 97 10/02/24 04:00 FiO2 Intake & Output 10/01/24 10/02/24 10/02/24 18:59 06:59 18:59 Intake Total 780 Output Total 1050 Balance -270 Weight 75.1 kg Intake: Oral 780 Output: Urine 1050 Other: # Voids 1 2 - Labs CBC & Chem 7: 10/01/24 09:11 10/01/24 09:11 Labs: Abnormal Lab Results - Last 24 Hours (Table) 10/01/24 10/01/24 10/01/24 Range/Units 09:11 09:11 10:30 RBC 3.34 L (3.80-5.40) m/uL Hgb 9.3 L (11.4-16.0) gm/dL Hct 29.0 L (34.0-46.0) % Sodium 135 L (137-145) mmol/L Urine Protein 2+ H (Negative) Urine Blood Trace H (Negative) Urine Mucus Rare H (None) /hpf
--- NOTE | 2024-10-03 08:16 | P.PN ---
Subjective Progress Note Date: 10/03/24 The patient is a 24-year-old female patient with history of preeclampsia who delivered the baby about a week ago as well as cardiomyopathy with EF around 45% as well as hypertension. She was seen yesterday by her primary care physician for a follow-up after giving about a week ago. She was found to have elevated blood pressure consistent with hypertension crisis. The main symptoms where bilateral lower extremities edema appears to be extremely severe with no other cardiovascular symptoms of any pain in the chest or shortness of breath or dizziness or lightheadedness or any feeling of heart racing or fluttering or presyncope or syncope. She was sent to the hospital immediately. She is trevino pposed to be on labetalol and Procardia but she has not been taking the Procardia. She stated that she has been taking the labetalol. She was admitted to the hospital and started on labetalol only. The pressure remains elevated but now consistent with stage II hypertension and she also continues to be slightly tachycardic. She underwent further workup including blood work came in to be unremarkable. The EKG was ordered and still pending. No UA was performed. The physical examination is remarkable for severe bilateral lower extremities pitting edema noted otherwise rest of the examination is unremarkable besides soft systolic murmur at the right upper sternal border October 02, 2024 The patient was seen and evaluated this morning. She seems to be feeling slightly better with improvement in the lower extremities edema. The pressure has improved as well. The venous duplex study showed no evidence of DVT. The physical examination is remarkable for mild to moderate bilateral lower extremities edema otherwise the rest of the examination appears to be unremarkable. October 03, 2024 The patient was seen and evaluated this morning which she is overall feeling better. The lower extremities edema has somewhat improved but she still have at least moderate bilateral lower extremities pitting edema. Her pressure has been under good control on the current medical regimen. I advised continue the current medical regimen and start using compression socks and she is on low- sodium diet as well. The physical examination is remarkable for regular rhythm with a soft systolic murmur and clear within sounds bilaterally and moderate bilateral lower extremities edema Assessment History of preeclampsia Cardiomyopathy with EF around 45% Hypertension crisis Heart failure Noncompliance Plan Continue the current medical regimen we will continue IV Lasix for additional 24 hours Continue monitor the kidney function and electrolytes Use compression socks and low-sodium diet Follow-up with the patient Objective - Vital Signs Vital signs: Vital Signs Temp 98.6 F 10/02/24 19:55 Pulse 77 10/03/24 03:40 Resp 16 10/03/24 03:40 BP 130/88 10/03/24 03:40 Pulse Ox 97 10/03/24 03:40 FiO2 Intake & Output 10/02/24 10/03/24 10/03/24 18:59 06:59 18:59 Weight 71.3 kg Other: # Voids 3 1 - Labs CBC & Chem 7: 10/01/24 09:11 10/01/24 09:11
--- NOTE | 2024-10-03 12:23 | P.PN ---
Subjective Progress Note Date: 10/03/24 24-year-old female -1-0-1 s/p primary 8 days ago. Her care was complicated with with a diagnosis of chronic hypertension and IUGR. She was transferred to [facility] for superimposed preeclampsia with severe features and cardiomyopathy. Echocardiogram was done at [facility] showing ejection fraction of 45% and was diagnosed with cardiomyopathy by cardiology. She states that she was discharged with labetalol, but does not remember the dosage. During interview patient states she was seeing her PCP and had elevated blood pressure when checked. She was advised to go to the ED. She denies any headache, vision changes, chest pain, shortness of breath, abdominal pain, urinary symptoms. She endorses bilateral leg swelling that she has had since her eighth month of . Patient was initially supposed to be started on IV Lasix however refused, per cardiology, can be continued on oral Lasix 40 twice daily, her blood pressure improved significantly. She will be maintained on labetalol 300 p.o. twice daily. Discussed with RN, per cardiology, patient needs to achieve more lower extremity edema prior to discharge, likely 10/04 No active complaints, lower extremity swelling is improving. Physical Exam: General: nontoxic, no distress, appears at stated age Derm: warm, dry, intact Head: atraumatic, normocephalic, symmetric Eyes: EOMI, anicteric sclera Mouth: no lip lesion, mucus membranes moist Cardiovascular: S1 S2 reg, no murmur, rubs, or gallops Lungs: CTA bilateral, no rhonchi, no rales, no accessory muscle use Abdominal: soft, diffusley tender to palpataion, surgical wound from clean and intact, no purulent drainage Extremities: no gross muscle atrophy, 3+ bilateral lower extremity pitting edema from ankle to proximal ackerman, pedal edema Neuro: Alert, Oriented, CNII-XII grossly intact, gait normal Psych: well appearing, Data Received Today: Labs: No new blood work Assessment and plan Patient is a 24-year-old -1-0-1 s/p primary 8 days ago. Her care was complicated with with a diagnosis of chronic hypertension. 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 twice daily; discussed the possible risks of diuretic while patient is breast-feeding, she verbalized understanding -Monitor BMP; patient continues to refuse blood draws -Bilateral lower extremity venous duplex ultrasound negative for DVT -Daily weights, intake/output, monitor electrolytes and renal function -Fluid restriction of 1500 mL -Heart healthy diet -Cardiac telemetry -Discussed with cardiology, continue diuresis and blood pressure control Postoperative anemia, likely due to bleeding -Likely secondary to -Denies any signs of active bleeding -Patient refused blood work Leukocytosis, likely reactive in setting of acute stress -Patient afebrile and showing no signs/symptoms of infection -surgical wound from clean and intact, no purulent drainage -Patient refused blood work DVT ppx: IPCDs Code status: Full code Anticipated discharge place: Home Anticipated discharge time: Likely tomorrow Dictation was produced using [employer] dictation software. please excuse any grammatical, word or spelling errors. Objective - Vital Signs Vital signs: Vital Signs Temp 98.0 F 10/03/24 08:00 Pulse 93 10/03/24 08:00 Resp 18 10/03/24 08:00 BP 120/84 10/03/24 08:00 Pulse Ox 98 10/03/24 08:00 FiO2 Intake & Output 10/02/24 10/03/24 10/03/24 18:59 06:59 18:59 Intake Total 120 Balance 120 Weight 71.3 kg Intake: Oral 120 Other: # Voids 3 1 - Labs CBC & Chem 7: 10/01/24 09:11 10/01/24 09:11
[2024-10-04 03:46] VITALS: RESP 16
[2024-10-04 07:27] LABS: African American GFR (CKD) >90 (>60 ml/min/1.73 sqM); Anion Gap 3 mmol/L; Blood Urea Nitrogen 16 mg/dL (7-17); Calcium 8.9 mg/dL (8.4-10.2); Carbon Dioxide 27 mmol/L (22-30); Chloride 104 mmol/L (98-107); Glucose 88 mg/dL (74-99); Non-African American GFR(CKD) >90 (>60 ml/min/1.73 sqM); Potassium 4.1 mmol/L (3.5-5.1); Sodium 134 mmol/L (137-145)
[2024-10-04 10:13] VITALS: BP 130/90; PULSE 98; TEMP 98.8
--- NOTE | 2024-10-04 12:51 | P.DS ---
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 Her care was complicated with with a diagnosis of chronic hypertension and IUGR. She was transferred to [facility] for superimposed preeclampsia with severe features and cardiomyopathy. Echocardiogram was done at [facility] showing ejection fraction of 45% and was diagnosed with cardiomyopathy by cardiology. She states that she was discharged with labetalol, but does not remember the dosage. During interview patient states she was seeing her PCP and had elevated blood pressure when checked. She was advised to go to the ED. She denies any headache, vision changes, chest pain, shortness of breath, abdominal pain, urinary symptoms. She endorses bilateral leg swelling that she has had since her eighth month of . During her hospital stay she had labetalol 300 mg p.o. twice daily initiated to control her blood pressure. Additionally, was recommended the patient be started on IV Lasix however the patient refused IV Lasix and she was initiated on oral Lasix 40 mg twice daily. Her leg swelling is continued to decrease however some swelling still does remain. She will be discharged on labetalol 300 mg twice daily, same as she was taking while in the hospital. Additionally, she will need to continue with the 40 mg of Lasix twice daily. Discussed with the patient the importance of checking her blood pressure regularly while on these medications and to follow-up promptly and regularly with her primary care physician as well as a field observer. She feels as though she is ready to be discharged today. Physical Exam: General: nontoxic, no distress, appears at stated age Derm: warm, dry, intact Head: atraumatic, normocephalic, symmetric Eyes: EOMI, anicteric sclera Mouth: no lip lesion, mucus membranes moist Cardiovascular: S1 S2 reg, no murmur, rubs, or gallops Lungs: CTA bilateral, no rhonchi, no rales, no accessory muscle use Abdominal: soft, diffusley tender to palpataion, surgical wound from clean and intact, no purulent drainage Extremities: no gross muscle atrophy, 2+ bilateral lower extremity pitting edema from ankle to proximal ackerman, pedal edema Neuro: Alert, Oriented, CNII-XII grossly intact, gait normal Psych: well appearing, Dictation was produced using [employer] dictation software. please excuse any grammatical, word or spelling errors. Brandt Kay MD PGY-1 IM A total of 36 minutes of time were spent preparing this complex discharge summary. Patient was discharged on 10/04/2024 at 953. I have seen and evaluated the patient today. Discussed with the resident and agree with the residents finding and plan as documented in the resident's note. Changes highlighted in blue font. Patient Condition at Discharge: Fair Plan - Discharge Summary Discharge Rx Participant: No New Discharge Prescriptions: New Furosemide [Lasix] 40 mg PO BID@0900,1600 #60 tab Labetalol [Trandate] 300 mg PO BID #60 tab Continue Acetaminophen Tab [Tylenol] 500 mg PO Q6H PRN PRN Reason: Pain Or Fever > 100.5 Ferrous Sulfate [Iron (65 MG Elemental)] 325 mg PO DAILY Discontinued Labetalol [Trandate] 800 mg PO Q8H Discharge Medication List Acetaminophen Tab [Tylenol] 500 mg PO Q6H PRN 10/01/24 [History] Ferrous Sulfate [Iron (65 MG Elemental)] 325 mg PO DAILY 10/01/24 [History] Furosemide [Lasix] 40 mg PO BID@0900,1600 #60 tab 10/04/24 [Rx] Labetalol [Trandate] 300 mg PO BID #60 tab 10/04/24 [Rx] Follow up Appointment(s)/Referral(s): Mynor Askew MD [STAFF PHYSICIAN] - 1 Week (office will call you to set up an appointment) [facility] [NON-STAFF] - 1 Week (please call to schedule an appointment.) Patient Instructions/Handouts: Heart Failure (DC) Activity/Diet/Wound Care/Special Instructions: Please check your BP twice a day. If less than 90/60 or lightheaded, do not take labetalol. Please see PCP and cardiology. Will likely need further changes to BP meds and lasix. Discharge Disposition: HOME SELF-CARE
== END 2024-10-04 14:33 | disposition home or self-care (01) | DRG 561 ==
LOC: 3SCARD 21:06
PROVIDERS: ADMIT Internal Medicine; ATTEND Internal Medicine
DX: O90.3 Peripartum cardiomyopathy (principal); O10.13 Pre-existing hypertensive heart disease complicating the puerperium; I11.0 Hypertensive heart disease with heart failure; O16.5 Unspecified maternal hypertension, complicating the puerperium; I50.9 Heart failure, unspecified; D50.0 Iron deficiency anemia secondary to blood loss (chronic); D72.829 Elevated white blood cell count, unspecified; Z53.20 Procedure and treatment not carried out because of patient's decision for unspecified reasons; Z79.899 Other long term (current) drug therapy; Z91.199 Patient's noncompliance with other medical treatment and regimen due to unspecified reason; Z28.310 Unvaccinated for COVID-19; Z28.21 Immunization not carried out because of patient refusal; Z88.6 Allergy status to analgesic agent; Z88.5 Allergy status to narcotic agent; Z88.0 Allergy status to penicillin
CPT/HCPCS: 80048; 80053; 81001; 83735; 83880; 84443; 84484; 85025; 85610; 85730; 93970